=== PATIENT | male | born 1945 | race Caucasian/White ===

== ENCOUNTER 2017-08-26 09:44 | Emergency (ER) | payer MEDICARE ==
[~2017-08-26] VITALS: Ht 170.2 cm; Wt 90.7 kg
[~2017-08-26 09:44] MED LIST: ACETAMINOPHEN650 M5 PO; AMBIEN 10 MG TA10 MG PO; AMBIEN 5 MG TABL5 M1 PO; ASA81BEC PO; ASPIR 8181 MG PO; B12INJ IM; B12INJ SUBQ; BISACODYL SUPP10 MG RECTAL; CALCIUM 600 +1 EAC1 PO; CALCIUM 600 WI1 EAC5 PO; CALTRATE-600 W1 EACH PO; CARDIZEM CD120 MG PO; CARDIZEM CD240 MG PO; CELEXA 20 MG TA20 MG PO; CELEXA20 MG PO; CELEXA40 MG PO; CITRACAL + D M1 EACH PO; CITRACAL SOFT1 EACH PO; CLONAZEPAM 1 MG1 M1 PO; COLACE 100 MG100 MG PO; CORDARONE200 MG PO; COUMADIN 4 MG TA4 M1 PO; CYANOCOBAL1000 MCG/1 IM; CYMBALTA30 MG PO; CYMBALTA60 MG PO; DOCUSATE SODIU100 MG; DURAGESIC1 EAC2 TOP; EFFEXOR XR75 MG PO; ENDOCET 5-3251 EACH PO; ENOXAPARIN40 MG/0.1 SUBQ; FISH OIL 1,0001 EAC8 PO; FISH OIL 1,001000 M1 PO; FLAGYL500 MG OR; FLEET ENEMA118 ML RC; FLEXERIL PO; FLINTSTONES +1 EACH PO; FLINTSTONES T100 MCG PO; FLOMAX OR; FLOMAX0.4 MG PO; FLONASE 0.05%50 MCG NASAL; GABAPENTIN 100100 MG PO; GLUCOSE4 GM PO; HYDROCODON-ACE1 EAC1 PO; HYDROCODONE-ACE15 ML PO; HYDROCODONE-APA15 ML PO; IRON18 M1 PO; IRON325 PO; K-DUR 20 MEQ T20 MEQ PO; LEVOTHYROXIN0.075 MG PO; LIDODERM 5%1 PATC1 TRANSDERM; LOPERAMIDE 2 MG2 M1 PO; MECLIZINE 25 MG25 M1 OR; MEDROLDOSEPACK PO; METAMUCIL PAC1 UDPK1 GT; MILK OF MA2400 MG/10 PO; MUCINEX TA600 MG/TA2 PO; NAPROSYN500 MG PO; NEURONTIN 300300 M1 PO; NORCO 5-325 TA1 EACH PO; OMEGA-31000 MG PO; OXYCODONE HCL 55 MG PO; OXYIR 5 MG CAPSU5 M1; PACERONE 200 M200 M1 NG; PACERONE 200 M200 M1 PO; PERCOCET 10-321 EACH PO; PERCOCET 5-3251 EACH; PERCOCET 5-3251 EACH PO; PERCOCET 7.5-31 EACH PO; PERCOCET PO; PLAVIX 75 MG TA75 MG OR; POTASSIUM20 PO; PRADAXA150 MG PO; PRADAXA75 MG PO; PREDNISONE 20 M20 MG PO; PROPAFENONE 22225 M1 PO; RAPAFLO8 MG; RAPAFLO8 MG PO; ROXICODONE5 MG PO; SENOKOT-S1 TA1 PO; SEROQUEL 50 MG50 MG; SEROQUEL 50 MG50 MG PO; TAMSULOSIN HCL0.4 M1 PO; TAMSULOSIN HCL0.4 MG PO; TRAMADOL 50 MG50 MG PO; VICODIN 5-5001 EACH OR; VIIBRYD10 MG PO; VIIBRYD40 MG PO; [UNRECOGNIZED DRUG - OTHER] PO
[2017-08-26 10:11] LABS: ABSOLUTE BASOPHILS 0.1 thou/uL (0.0-0.2); ABSOLUTE EOSINOPHILS 0.2 thou/uL (0.0-0.7); ABSOLUTE MONOCYTES 0.3 thou/uL (0.0-1.2); ABSOLUTE NEUTROPHILS 5.8 thou/uL (1.6-8.1); EOSINOPHILS 2.1 %; HEMATOCRIT 43.7 % (42.0-52.0); HEMOGLOBIN 14.2 gm/dL (14.0-18.0); LYMPHOCYTES 13.4 %; MCH 30.7 pg (26.0-34.0); MCHC 32.5 g/dL (28.0-37.0); MCV 94.3 fL (80.0-100.0); MONOCYTES 4.3 %; MPV 8.1 fl. (7.2-11.1); NUCLEATED RBCS 0 /100WBC; PLATELET COUNT* 174 thou/uL (150-400); POLYS 79.2 %; RBC 4.63 mil/uL (4.50-6.00); WBC 7.3 thou/uL (4.0-11.0)
[2017-08-26 10:16] LABS: CALCIUM 8.4 mg/dL (8.5-10.1); CREATININE 0.8 mg/dL (0.6-1.3); POTASSIUM 4.6 mmol/L (3.5-5.1)
[2017-08-26 10:20] LABS: ALBUMIN 3.2 g/dL (3.4-5.0); TOTAL BILIRUBIN 0.8 mg/dL (<0.1-1.0); TOTAL PROTEIN 6.3 g/dL (6.4-8.2)
[2017-08-26 11:12] LABS: URINE BILIRUBIN NEGATIVE (Negative); URINE BLOOD NEGATIVE (Negative); URINE CLARITY CLEAR; URINE COLOR YELLOW; URINE GLUCOSE-RANDOM NEGATIVE (Negative); URINE KETONES NEGATIVE (Negative); URINE LEUKOCYTES-REFLEX NEGATIVE (Negative); URINE NITRITE-REFLEX NEGATIVE (Negative); URINE PROTEIN NEGATIVE (Negative)
[2017-08-26 11:33] VITALS: BP 138/72
--- NOTE | 2017-08-26 15:51 | EKG ---
[place] [address] ELECTROCARDIOGRAM REPORT Name: REESE SCHULTE Room: [facility] ([place], [place])Kris#: [id number] Admission: 08/26/17 Attend Phys: Discharge: 08/26/17 Date of : 43 Report #: [id number] THIS REPORT FOR: //name// [facility] ED Test Date: 2017-08-26 Test Time: 09:52:04 Pat Name: REESE ERIS Department: Room: Gender: M Change Management Coordinator: : 1945 Requested By: Fabian Lowry Order Number: [id number] Jarvis MD: Hugh Rodriguez Measurements Intervals [place] Rate: 61 P: 42 LA: 176 QRS: 70 QRSD: 144 T: 49 QT: 500 QTc: 504 Interpretive Statements Sinus rhythm Right bundle branch block Baseline wander in lead(s) I,III,aVR,aVL,aVF Compared to ECG 03/31/2017 03:46:08 No significant changes Electronically Signed On 08-26-2017 15:51:10 BUSINESS PERFORMANCE ADVISOR by Hugh Rodriguez [email or web address] <ELECTRONICALLY SIGNED> By: Hugh Rodriguez MD, [facility] 08/26/17 1551 0952 0952 Hugh Rodriguez MD, FAC /EPI
== END 2017-08-26 11:34 | disposition home or self-care (01) ==
LOC: M.ERS 09:44
PROVIDERS: Emergency Medicine
DX: S01.01XA Laceration without foreign body of scalp, initial encounter (principal); S70.02XA Contusion of left hip, initial encounter; I10 Essential (primary) hypertension; E03.9 Hypothyroidism, unspecified; I48.91 Unspecified atrial fibrillation; Z98.890 Other specified postprocedural states; Z90.49 Acquired absence of other specified parts of digestive tract; Z96.653 Presence of artificial knee joint, bilateral; W18.39XA Other fall on same level, initial encounter; Y93.89 Activity, other specified; Y92.89 Other specified places as the place of occurrence of the external cause; Y99.8 Other external cause status

== ENCOUNTER → 2018-12-21 | Outpatient (CLI) | payer MEDICARE ==
--- NOTE | 2018-12-21 16:59 | CARDNUC ---
[place] [address] CARDIAC NUCLEAR IMAGING REPORT Name: REESE SCHULTE SR Room: [facility]#: [id number] Admission: 12/21/18 Attend Phys: Bruce Rodriguez, Discharge: Date of : 43 Date of Service: 12/21/18 1659 Report #: [id number] THIS REPORT FOR: //name// APPROVED REPORT Imaging Protocol: Rest Tc-99m/Stress Tc-99m 1 day Study performed: 12/21/2018 09:00:00 Indication: Chest pain Patient Location: Out-Patient Stress Tech: Sheri Canas Stress Nurse: Griselda Bustamante RN NM Tech:VINICIUS Whipple Ht: 5 ft 6 in Wt: 187 lbs BSA: 1.94 m2 BMI: 30.17 Medical History Medical History: Angina, Atrial Fibrillation, Fatigue, HTN, Obesity , Weakness, Weight loss surgery, Confusion, Forgetfulness. Medications: ASA 81 mg, metoprolol, NTG, rythmol Allergies: No known drug allergies Cardiac Risk Factors: Age, FHX of CAD, HTN, AFib. Previous Cardiac Procedures: None Pretest Chest Pain Characteristics: Typical angina Exercise History: Sedentary Physical Disabilities: Legs, Knees, HX Afib. Meds Held (24 hrs): Metoprolol, NTG Resting Data Rest SPECT myocardial perfusion imaging was performed in supine position 30 minutes following the intravenous injection of 12.0 mCi of Tc-99m Sestamibi. Time of rest injection: 914 Date: 12/21/2018 The images were gated to evaluate regional wall motion and calculate left ventricular ejection fraction. Administration Route: IV Administration Site: Right Hand Pharmacologic Stress Pharmacologic stress test was performed by injecting Regadenoson 0.4 mg IV push over 10-15 seconds immediately followed by the intravenous injection of 33.4 mCi of Tc-99m Sestamibi. Time of stress injection: 1050 Date: 12/21/2018 Administration Route: [place] [address] CARDIAC NUCLEAR IMAGING REPORT Name: REESE SCHULTE Room: [facility]#: [id number] Admission: 12/21/18 Attend Phys: Bruce Rodriguez, Discharge: Date of : 43 Date of Service: 12/21/18 1659 Report #: [id number] Administration Site: Right Hand Gated Stress SPECT was performed 40 minutes after stress injection. The images were gated to evaluate regional wall motion and calculate left ventricular ejection fraction. Stress only was performed in the Supine position. Stress Test Details Stress Test: Pharmacologic stress testing performed using 0.4 mg of regadenoson per 5 mL given IV over 10 seconds. Reason for pharmacologic stress test: physical limitation, 2x assist in transfer, weak/unsteady, HX Afib.. HR Max Heart Rate (APMHR): 146 bpm Resting HR: 72 bpm Target HR (85% APMHR): 124 bpm Max HR Achieved: 85 bpm % of APMHR: 58 Recovery HR: 75 bpm BP Resting BP: 138/92 mmHg Max BP: 147/96 mmHg Recovery BP: 125/94 mmHg ECG Resting ECG: Sinus Rhythm, RBBB Stress ECG: Sinus Rhythm, RBBB ST Change: None Arrhythmia: None Recovery ECG: Sinus Rhythm, RBBB Recovery ST Change: None Recovery Arrhythmia: None Clinical Reason for Termination: Completed protocol Stress Symptoms: Chest pain, Dizziness, Fatigue, Headache, Lightheaded, Weakness Exercise duration: 0 min 0 sec Exercise capacity: 1.00 METs The patient tolerated Lexiscan infusion without significant symptoms. Nurse Comments 73 year old male presented in wheelchair with exhibiting confusion, forgetfullness and reporting CP. Patient tolerated sitting Lexiscan. Recovery unremarkable with PO caffeine. Patient escorted via wheelchair by staff with at side [place] [address] CARDIAC NUCLEAR IMAGING REPORT Name: REESE SCHULTE SR Room: [facility] Lon#: [id number] Admission: 12/21/18 Attend Phys: Bruce Rodriguez, Discharge: Date of : 43 Date of Service: 12/21/18 1659 Report #: [id number] images. Patient stable with no complaints at that time. Stress ECG Conclusion The baseline 12-lead EKG show sinus rhythm with right bundle-branch block. There were no significant ST or T wave abnormalities noted. EKGs obtained during and post Lexiscan infusion show sinus rhythm with no significant ST or T wave changes when compared to baseline. There were no stress-induced arrhythmias. Study Quality Study: Good Artifact: No artifact Study Data At rest, the left ventricular ejection fraction was 80%.. Post stress, the left ventricular ejection was 78%.. TID = 1.00. Perfusion Normal left ventricular perfusion. Wall Motion Normal left ventricular wall motion. Nuclear Conclusion ECG Findings: negative for ischemia Clinical Findings: negative for ischemia Nuclear Findings: negative for ischemia Exercise Capacity: not assessed Left Ventricular Function: normal Risk Study: low Myocardial perfusion images show no defect to suggest infarct or ischemia. Left ventricular systolic function appears normal on gated studies. This is a low risk study. <Conclusion> The baseline 12-lead EKG show sinus rhythm with right bundle-branch block. There were no significant ST or T wave abnormalities noted. EKGs obtained during and post Lexiscan infusion show sinus rhythm with no significant ST or T wave changes when compared to baseline. There were no stress-induced arrhythmias. <ELECTRONICALLY SIGNED> By: Norbert Sy MD, FACC 12/21/181658 58 58 Norbert Sy MD, FACC /INF
== END ==
LOC: M.NUC 12-20 13:00 → M.CRD 12-20 14:00 → M.NUC 12-20 15:00
DX: I20.8 Other forms of angina pectoris (principal); I48.91 Unspecified atrial fibrillation; I10 Essential (primary) hypertension; E66.9 Obesity, unspecified; Z68.30 Body mass index [BMI] 30.0-30.9, adult; Z82.49 Family history of ischemic heart disease and other diseases of the circulatory system; Z79.899 Other long term (current) drug therapy

== ENCOUNTER 2019-01-03 10:55 | Emergency (ER) | payer MEDICARE ==
[~2019-01-03] VITALS: Ht 170.2 cm; Wt 76.7 kg
[2019-01-03 11:16] LABS: ABSOLUTE BASOPHILS 0.1 thou/uL (0.0-0.2); ABSOLUTE EOSINOPHILS 0.1 thou/uL (0.0-0.7); ABSOLUTE LYMPHOCYTES 1.6 thou/uL (0.8-5.3); ABSOLUTE MONOCYTES 0.4 thou/uL (0.0-1.2); ABSOLUTE NEUTROPHILS 3.2 thou/uL (1.6-8.1); BASOPHILS 1.5 %; HEMATOCRIT 45.7 % (42.0-52.0); HEMOGLOBIN 15.6 gm/dL (14.0-18.0); LYMPHOCYTES 29.3 %; MCH 31.3 pg (26.0-34.0); MCHC 34.1 g/dL (28.0-37.0); MCV 91.8 fL (80.0-100.0); MONOCYTES 8.1 %; MPV 7.9 fl. (7.2-11.1); NUCLEATED RBCS 0 /100WBC; PLATELET COUNT* 228 thou/uL (150-400); POLYS 60.1 %; RBC 4.98 mil/uL (4.50-6.00); RDW-CV 14.3 % (10.5-14.5); WBC 5.3 thou/uL (4.0-11.0)
[2019-01-03 11:26] LABS: ANION GAP 10 mmol/L (7-16); BUN 3 mg/dL (7-18); CALCIUM 8.1 mg/dL (8.5-10.1); CHLORIDE 101 mmol/L (98-107); CO2 32 mmol/L (21-32); CREATININE 0.7 mg/dL (0.6-1.3); GLUCOSE 105 mg/dL (70-99); SODIUM 143 mmol/L (136-145)
[2019-01-03 11:28] LABS: APTT 29.5 Seconds (25.0-31.3); INR 1.1
[2019-01-03 11:32] LABS: POTASSIUM 2.4 mmol/L (3.5-5.1)
[2019-01-03 11:39] LABS: ALBUMIN 3.2 g/dL (3.4-5.0); ALKALINE PHOSPHATASE 123 U/L (46-116); CK-MB MASS 1.8 ng/mL (<0.5-3.6); LIPASE 33 U/L (73-393); MAGNESIUM 1.7 mg/dL (1.8-2.4); NT-PRO BRAIN NAT PEPTIDE 605 pg/mL (<300); SGOT 22 U/L (15-37); SGPT 18 U/L (30-65); TOTAL BILIRUBIN 1.4 mg/dL (<0.1-1.0); TOTAL PROTEIN 6.4 g/dL (6.4-8.2); TROPONIN-I LEVEL <0.06 ng/mL (<0.06)
[2019-01-03] MEDS ORDERED: POTASSIUM20 PO (14:21)
[2019-01-03] MEDS ORDERED: PERCOCET 5-3251 EACH PO (14:21)
[2019-01-03 15:08] VITALS: BP 110/79
--- NOTE | 2019-01-04 11:17 | EKG ---
[place] [address] ELECTROCARDIOGRAM REPORT Name: REESE SCHULTE [id number] Admission: 01/03/19 Attend Phys: Discharge: 01/03/19 Date of : 43 Report #: [id number] THIS REPORT FOR: //name// [facility] ED Test Date: 2019-01-03 Test Time: 11:00:03 Pat Name: REESE SCHULTE Department: Room: Gender: M Safety Fire Boss: Jackie LANDEROS : 1945 Requested By: Jesus Malik Order Number: [id number] MD: Leonardo Mayer Measurements Intervals [place] Rate: 73 P: 47 HI: 176 QRS: 63 QRSD: 148 T: 28 QT: 573 QTc: 632 Interpretive Statements Sinus rhythm Right bundle branch block Baseline wander in lead(s) V1 Compared to ECG 08/26/2017 09:52:04 No significant changes Electronically Signed On 01-04-2019 11:17:22 CDT by Leonardo Mayer [email or web address] <ELECTRONICALLY SIGNED> By: Leonardo Mayer MD, [facility] 01/04/19 1117 1100 1100 Leonardo Mayer MD, FAC /EPI
== END 2019-01-03 15:11 | disposition home or self-care (01) ==
LOC: M.ERS 10:55
PROVIDERS: Family Medicine
DX: R07.89 Other chest pain (principal); E87.6 Hypokalemia; I10 Essential (primary) hypertension; E03.9 Hypothyroidism, unspecified; I48.91 Unspecified atrial fibrillation; Z96.653 Presence of artificial knee joint, bilateral; Z90.49 Acquired absence of other specified parts of digestive tract

== ENCOUNTER 2019-04-25 13:15 | Inpatient (IN) | payer MEDICARE ==
[~2019-04-25] VITALS: Ht 172.7 cm; Wt 81.7 kg
[2019-04-25 13:16] VITALS: BP 125/74
[2019-04-25 13:42] LABS: BE 4.7 mmol/L (-2 to +3); PCO2 42.5 mmHg (35.0-45.0); pH 7.454 (7.340-7.450)
[2019-04-25 13:44] LABS: PO2 40.4 mmHg (75.0-100.0)
[2019-04-25 13:53] LABS: ABSOLUTE LYMPHOCYTES 0.9 thou/uL (0.8-5.3); ABSOLUTE MONOCYTES 0.6 thou/uL (0.0-1.2); ABSOLUTE NEUTROPHILS 6.2 thou/uL (1.6-8.1); BASOPHILS 0.5 %; EOSINOPHILS 0.6 %; HEMATOCRIT 36.9 % (42.0-52.0); HEMOGLOBIN 12.7 gm/dL (14.0-18.0); LYMPHOCYTES 11.1 %; MCH 32.8 pg (26.0-34.0); MCHC 34.5 g/dL (28.0-37.0); MCV 95.2 fL (80.0-100.0); MONOCYTES 8.3 %; MPV 8.4 fl. (7.2-11.1); NUCLEATED RBCS 0 /100WBC; PLATELET COUNT* 164 thou/uL (150-400); POLYS 79.5 %; RBC 3.88 mil/uL (4.50-6.00); RDW-CV 14.6 % (10.5-14.5); WBC 7.8 thou/uL (4.0-11.0)
[2019-04-25 14:03] LABS: INR 1.1; PROTIME 11.4 Seconds (9.20-11.50)
[2019-04-25 14:05] LABS: ANION GAP 6 mmol/L (7-16); BUN 8 mg/dL (7-18); CALCIUM 7.3 mg/dL (8.5-10.1); CHLORIDE 101 mmol/L (98-107); CO2 32 mmol/L (21-32); CREATININE 0.8 mg/dL (0.6-1.3); GLUCOSE 87 mg/dL (70-99); SODIUM 139 mmol/L (136-145)
[2019-04-25 14:06] LABS: POTASSIUM 2.7 mmol/L (3.5-5.1)
[2019-04-25 14:13] LABS: ALBUMIN 2.3 g/dL (3.4-5.0); ALKALINE PHOSPHATASE 137 U/L (46-116); NT-PRO BRAIN NAT PEPTIDE 4450 pg/mL (<300); SGOT 24 U/L (15-37); SGPT 16 U/L (30-65); TOTAL BILIRUBIN 1.3 mg/dL (<0.1-1.0); TOTAL PROTEIN 5.2 g/dL (6.4-8.2); TROPONIN-I LEVEL <0.06 ng/mL (<0.06)
[2019-04-25 14:36] LABS: URINE BILIRUBIN NEGATIVE (Negative); URINE BLOOD NEGATIVE (Negative); URINE CLARITY CLEAR; URINE COLOR YELLOW; URINE GLUCOSE-RANDOM NEGATIVE (Negative); URINE KETONES NEGATIVE (Negative); URINE LEUKOCYTES-REFLEX NEGATIVE (Negative); URINE NITRITE-REFLEX NEGATIVE (Negative); URINE PROTEIN NEGATIVE (Negative); URINE SPECIFIC GRAVITY <= 1.005 (1.005-1.030)
[2019-04-25 16:00] VITALS: BP 133/90
[2019-04-25 16:15] VITALS: BP 128/82
[2019-04-25 16:57] LABS: BE 7.3 mmol/L (-2 to +3); PO2 63.1 mmHg (75.0-100.0); pH 7.432 (7.340-7.450)
[2019-04-25 17:00] LABS: PCO2 50.6 mmHg (35.0-45.0)
--- NOTE | 2019-04-25 17:26 | EKG ---
[place] [address] ELECTROCARDIOGRAM REPORT Name: REESE SCHULTE Room: [address] ADM IN M.R.#: [id number] Admission: 04/25/19 Attend Phys: Wood Vinson, Discharge: Date of : 43 Report #: [id number] THIS REPORT FOR: //name// [facility] ED Test Date: 2019-04-25 Test Time: 13:27:52 Pat Name: REESE ERIS Department: Room: [facility] Gender: M It Service Continuity Supervisor: [place] : 1945 Requested By: Jesus Malik Order Number: [id number] MD: Norbert Sy Measurements Intervals [place] Rate: 75 P: 36 CA: 201 QRS: 76 QRSD: 161 T: -1 QT: 464 QTc: 519 Interpretive Statements Sinus rhythm Right bundle branch block Compared to ECG 01/03/2019 11:00:03 No significant changes Electronically Signed On 04-25-2019 17:26:13 CDT by Norbert Sy [email or web address] <ELECTRONICALLY SIGNED> By: Norbert Sy MD, [facility] 04/25/19 1726 1327 132 Norbert Sy MD, [facility] /EPI
[2019-04-26] VITALS: BP 116/81
[2019-04-26 04:00] VITALS: BP 121/78
[2019-04-26 05:25] LABS: HEMATOCRIT 40.5 % (42.0-52.0); HEMOGLOBIN 13.7 gm/dL (14.0-18.0); MCH 32.4 pg (26.0-34.0); MCHC 33.7 g/dL (28.0-37.0); MCV 96.2 fL (80.0-100.0); MPV 8.4 fl. (7.2-11.1); RBC 4.22 mil/uL (4.50-6.00); RDW-CV 15.3 % (10.5-14.5); WBC 5.9 thou/uL (4.0-11.0)
[2019-04-26 05:58] LABS: ANION GAP 7 mmol/L (7-16); BUN 9 mg/dL (7-18); CALCIUM 7.6 mg/dL (8.5-10.1); CHLORIDE 105 mmol/L (98-107); CO2 30 mmol/L (21-32); CREATININE 0.9 mg/dL (0.6-1.3); GLUCOSE 102 mg/dL (70-99); MAGNESIUM 1.9 mg/dL (1.8-2.4); SODIUM 142 mmol/L (136-145); TROPONIN-I LEVEL <0.06 ng/mL (<0.06)
[2019-04-26 06:05] LABS: POTASSIUM 3.9 mmol/L (3.5-5.1)
[2019-04-26 08:00] VITALS: BP 129/72
[2019-04-26 11:00] VITALS: BP 106/61
--- NOTE | 2019-04-26 11:38 | 2DMMODE ---
[place] [address] 2 D/M-MODE ECHOCARDIOGRAM Name: REESE SCHULTE Room: [address] IN [facility]#: [id number] Admission: 04/25/19 Attend Phys: Wood Aguayo Discharge: Date of : 43 Date of Service: 04/26/19 1138 Report #: [id number] THIS REPORT FOR: //name// APPROVED REPORT Study performed: 04/26/2019 10:15:47 EXAM: Comprehensive 2D, Doppler, and color-flow Echocardiogram Patient Location: In-Patient Room #: [facility] Status: routine BSA: 1.95 HR: 75 bpm BP: 129/72 mmHg Rhythm: NSR Other Information Study Quality: Fair Indications Abnormal ECG Dyspnea 2D Dimensions IVSd: 11.53 (7-11mm) LVOT Diam: 21.68 (18-24mm) LVDd: 41.60 mm PWd: 9.90 (7-11mm) Ascending Ao: 37.16 (22-36mm) LVDs: 26.24 (25-40mm) Aortic Root: 34.27 mm Volumes Left Atrial Volume (Systole) LA ESV Index: 24.30 mL/m2 Aortic Valve AoV Peak Fernando.: 1.65 m/s AO Peak Gr.: 10.89 mmHg LVOT Max P.36 mmHg AO Mean Gr.: 5.71 mmHg LVOT Mean P.31 mmHg LVOT Max V: 1.16 m/s AO V2 VTI: 30.16 cm LVOT Mean V: 0.68 m/s SANYA (VTI): 2.77 cm2 LVOT V1 VTI: 22.61 cm Mitral Valve E/A Ratio: 0.80 MV Decel. Time: 275.85 [place] [address] 2 D/M-MODE ECHOCARDIOGRAM Name: REESE SCHULTE Room: [address] IN .#: [id number] Admission: 04/25/19 Attend Phys: Wood Aguayo Discharge: Date of : 43 Date of Service: 04/26/19 1138 Report #: [id number] MV E Max Fernando.: 0.62 m/s MV PHT: 80.00 ms MVA (PHT): 2.75 cm2 TDI E/Lateral E': 3.88 E/Medial E': 6.20 Medial E' Fernando.: 0.10 m/s Lateral E' Fernando.: 0.16 m/s Pulmonary Valve PV Peak Fernando.: 0.94 m/s PV Peak Gr.: 3.57 mmHg Tricuspid Valve RAP Estimate: 5.00 mmHg TR Peak Gr.: 32.25 mmHg RVSP: 37.00 mmHg PA Pressure: 37.00 mmHg Left Ventricle The left ventricle is normal size. There is normal LV segmental wall motion. There is normal left ventricular wall thickness. Left ventricular systolic function is normal. The left ventricular ejection fraction is within the normal range. LVEF is 60-65%. Grade I - abnormal relaxation pattern. Right Ventricle The right ventricle is normal size. The right ventricular systolic function is normal. Atria The left atrium size is normal. Right atrium is dilated. Aortic Valve Mild aortic valve sclerosis. Mild aortic regurgitation. There is no aortic valvular stenosis. Mitral Valve The mitral valve is normal in structure. There is no mitral valve regurgitation noted. No evidence of mitral valve stenosis. Tricuspid Valve The tricuspid valve is normal in structure. Mild tricuspid regurgitation. estimated pa pressure 45 mm Hg Pulmonic Valve Pulmonic valve is not well visualized. There is no pulmonic [place] [address] 2 D/M-MODE ECHOCARDIOGRAM Name: REESE SCHULTE SR Room: [address]#: [id number] Admission: 04/25/19 Attend Phys: Wood Aguayo Discharge: Date of : 43 Date of Service: 04/26/19 1138 Report #: [id number] Great Vessels The aortic root is normal in size. IVC is normal in size and collapses >50% with inspiration. Pericardium There is no pericardial effusion. <Conclusion> LVEF is 60-65%. Mild aortic regurgitation. Mild tricuspid regurgitation. estimated pa pressure 45 mm Hg <ELECTRONICALLY SIGNED> By: Leonardo Mayer MD, FACC 04/26/19 1138 1138 1138 Leonardo Mayer MD, FACC /INF
--- NOTE | 2019-04-26 14:00 | CON ---
[address] [address] CONSULTATION Name: REESE SCHULTE SR Room: [address] IN .R.#: [id number] Admission: 04/25/19 Attend Phys: Wood Vinson, Discharge: Date of : 43 Report #: [id number] THIS REPORT FOR: //name// CC: Areli Younger DATE OF SERVICE: 04/26/2019 CARDIOLOGY CONSULTATION HISTORY OF PRESENT ILLNESS: The patient is a 74-year-old white male who I was asked to see in the hospital today after he complained of feeling weak. The patient has a history of developing atrial fibrillation after surgery in the past. He has been followed by my partner, Dr. Rodriguez. He chronically has been on Rythmol and metoprolol. He denies any recent palpitations. He has no history of coronary artery disease. He is not very active at this time, but denies any significant chest pain or shortness of breath. Apparently, the patient was doing well until yesterday. He felt weak and felt trembly. He was sitting in the side of bed and fell over. Paramedics were called. He was noted to be hypoxic. He was brought to the hospital for further evaluation and treatment. PAST MEDICAL HISTORY: Otherwise significant for carpal tunnel surgery, cataract extraction, cholecystectomy, history of obesity, previously weighed over 300 pounds. He had gastric bypass. He now weighs 187 pounds. He has had both knees replaced. He has had shoulder surgery. There is no history of diabetes, has hypertension, hyperlipidemia. MEDICATIONS: Consists of aspirin, Klonopin, Lexapro, Neurontin, Synthroid, meclizine, metoprolol, Rythmol, Seroquel, Rapaflo. He has sleep apnea. ALLERGIES: He has no known drug allergies. FAMILY HISTORY: His father had heart disease. SOCIAL HISTORY: He is . He and his live in [place], [place]. 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 No smoking. No alcohol abuse. REVIEW OF SYSTEMS: He has had no history of stroke, asthma, peptic ulcer disease, liver disease, kidney disease, cancer, psychiatric illness, chronic skin condition. PHYSICAL EXAMINATION: GENERAL: Revealed an elderly male, lying in bed, appeared in no acute distress. VITAL SIGNS: He had a blood pressure of 120/80, pulse 60[place] [address] CONSULTATION Name: ERISREESE MADELIN MALDONADO Room: [address]#: [id number] Admission: 04/25/19 Attend Phys: Wood Vinson, Discharge: Date of : 43 Report #: [id number] HEENT: He was anicteric. Conjunctivae pink. Mucous membranes moist. NECK: Veins do not appear distended. No carotid bruits. Neck supple. CHEST: Revealed decreased breath sounds at bases. CARDIOVASCULAR: Regular rate and rhythm. No significant murmur. ABDOMEN: Soft. EXTREMITIES: Had no edema. Dorsalis pedis pulse 3+ in the right, left is only 1+. SKIN: Cool and dry. NEUROLOGIC: Nonfocal. LYMPH: No adenopathy. MUSCULOSKELETAL: No joint effusion. RADIOLOGICAL DATA: His ECG on admission showed a sinus rhythm with a right bundle-branch block. His workup, he had a nuclear stress test in December of this year here at [facility] that showed ejection fraction 78%. No evidence of ischemia. He had an echocardiogram in 2015 that showed an ejection fraction of 60%. He had a portable chest x-ray in the Emergency Room last night. He is showing an infiltrate, tortuous aorta. He had CT scan of the chest using a PE protocol that showed no pulmonary embolus, diffuse infiltrates. CT scan of the head was performed without contrast that showed only chronic changes, no acute abnormalities. LABORATORY WORK: Sodium 142, creatinine 0.9. Liver function studies were normal. Albumin is only 2.3. Troponin 0.06. BNP 4450. His white blood cell count 5.9, hemoglobin 13.7. IMPRESSION AND RECOMMENDATIONS: 1. Pulmonary edema. Recommend echocardiogram. I would give Lasix. 2. Tremor. 3. History of atrial fibrillation. No clinical recurrences on propranolol and metoprolol. 4. History of obesity with previous gastric bypass. 5. History of hypertension. The patient is on a beta marco. 6. Sleep apnea. The patient uses CPAP. <ELECTRONICALLY SIGNED> By: Leonardo Mayer MD, [facility] 04/26/19 1400 0816 [id number] Mayer MD, FAC /nt
[2019-04-26 15:00] VITALS: BP 115/72
[2019-04-27] VITALS: BP 126/76
[2019-04-27 04:00] VITALS: BP 124/71
[2019-04-27 04:53] LABS: CALCIUM 7.5 mg/dL (8.5-10.1); CREATININE 0.6 mg/dL (0.6-1.3); POTASSIUM 3.1 mmol/L (3.5-5.1)
[2019-04-27 09:00] VITALS: BP 111/59
[2019-04-27 12:26] VITALS: BP 97/62
[2019-04-27 17:18] VITALS: BP 124/64
[2019-04-27 20:00] VITALS: BP 113/72
[2019-04-28 00:18] VITALS: BP 101/65
[2019-04-28 04:52] VITALS: BP 122/76
[2019-04-28 07:30] VITALS: BP 152/95
[2019-04-28 12:09] VITALS: BP 95/58
[2019-04-28 15:47] LABS: ABSOLUTE LYMPHOCYTES 0.9 thou/uL (0.8-5.3); ABSOLUTE MONOCYTES 0.3 thou/uL (0.0-1.2); ABSOLUTE NEUTROPHILS 3.8 thou/uL (1.6-8.1); BASOPHILS 0.5 %; HEMATOCRIT 42.6 % (42.0-52.0); HEMOGLOBIN 14.2 gm/dL (14.0-18.0); LYMPHOCYTES 18.2 %; MCH 32.3 pg (26.0-34.0); MCHC 33.4 g/dL (28.0-37.0); MCV 96.8 fL (80.0-100.0); MONOCYTES 5.1 %; MPV 8.8 fl. (7.2-11.1); NUCLEATED RBCS 0 /100WBC; PLATELET COUNT* 218 thou/uL (150-400); POLYS 75.2 %; RDW-CV 14.9 % (10.5-14.5); WBC 5.1 thou/uL (4.0-11.0)
[2019-04-28 15:55] LABS: ALBUMIN 2.1 g/dL (3.4-5.0); CALCIUM 7.8 mg/dL (8.5-10.1); CREATININE 0.7 mg/dL (0.6-1.3); POTASSIUM 4.1 mmol/L (3.5-5.1); TOTAL BILIRUBIN 0.8 mg/dL (<0.1-1.0); TOTAL PROTEIN 5.6 g/dL (6.4-8.2)
[2019-04-28 16:00] VITALS: BP 95/60
[2019-04-28 20:00] VITALS: BP 101/64
[2019-04-29] VITALS (7 sets, daily range): BP systolic 90–110; BP diastolic 50–74
[2019-04-29 05:28] LABS: CALCIUM 7.8 mg/dL (8.5-10.1); CREATININE 0.6 mg/dL (0.6-1.3)
--- NOTE | 2019-04-29 07:40 | CON ---
[address] [address] CONSULTATION Name: REESE SCHULTE SR Room: [address] IN M.R.#: [id number] Admission: 04/25/19 Attend Phys: Wood Vinson, Discharge: Date of : 43 Report #: [id number] THIS REPORT FOR: //name// CC: Leonardo Mayer MD [facility] Areli Vincent MD DATE OF SERVICE: 04/26/2019 LOCATION: Room [facility] [address] ATTENDING PHYSICIAN: Wood Vinson MD PRIMARY CARE PHYSICIAN: Areli Hernandez MD INDICATION FOR CONSULTATION: CHF, hypoxemia, sleep apnea, mild pulmonary hypertension. HISTORY OF PRESENT ILLNESS: The patient is a 74-year-old male who states he is a nonsmoker, who was feeling weak. He had cough, shortness of breath and flash pulmonary edema. He had been feeling weak for 3-4 days prior to admission and he had fallen a couple times at home. He had a dry cough. He denies any fever, chills, sweats. He denies any chest pain. He was supposed to be on CPAP at home. He was on oxygen now at 5 liters. He was on BiPAP at 40% or 50% overnight. Chest x-ray showed CHF. He was diuresed with Lasix b.i.d. He has had brisk urine output and feels better. He is down to 5 liters at this time and again, he denies any aspiration or esophageal reflux. No chest pain. He has had chronic peripheral edema. He has been weak and not able to ambulate, otherwise, he is on a bed alarm at this time. He does feel better today. His short term memory is not very good. His is at the bedside and helps out. PAST MEDICAL HISTORY: He has a history of atrial fibrillation, history of hypertension and also some diastolic congestive heart failure. Negative for diabetes or hyperlipidemia, positive for obstructive sleep apnea. PAST SURGICAL HISTORY: Includes carpal tunnel surgery, cataract surgery, cholecystectomy, history of obesity and he had a gastric bypass surgery about 10 years ago, he used to weigh over 300 pounds. He has had bilateral knee replacements in 2009 done 6 weeks apart at [facility] and had no problems with anesthetic or any problem after that. OUTPATIENT MEDICATIONS: Include aspirin 81 mg daily, Klonopin 0.5 mg at bedtime, Seroquel 50 mg at bedtime, Rythmol 225 mg t.i.d., metoprolol 25 mg b.i.d., Synthroid once daily, meclizine [place] [address] CONSULTATION Name: REESE SCHULTE SR Room: [address] IN ..#: [id number] Admission: 04/25/19 Attend Phys: Wood Vinson, Discharge: Date of : 43 Report #: [id number] ALLERGIES: He has no known medical allergies. FAMILY HISTORY: Father has a history of coronary artery disease. Negative for premature pulmonary disease. SOCIAL HISTORY: The patient is . He and his live in [place], [place], lifelong nonsmoker, nondrinker. 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 REVIEW OF SYSTEMS: Fourteen review of systems reviewed and negative except for pertinent positives noted in the HPI. PHYSICAL EXAMINATION: GENERAL: Elderly 74-year-old male on 4 liters, appears in minimal distress at this time. He can answer some questions. His answers most of them. VITAL SIGNS: Currently, his blood pressure is 106/62, heart rate 72, respirations were 18, temperature is 36.7 degrees, oxygen on 5 liters was 95%. He had previously been on BiPAP last night. He is 5 feet 10 inches tall, weight is 81 kilograms or 185 pounds, BMI is 27. HEENT: Nares are clear. Mucous membranes are moist. Pharynx is crowded with a Mallampati score of 4. NECK: Supple, without nodes. Mild increase in jugular venous pressure. No masses or adenopathy. CHEST: Shows bibasilar crackles, right greater than left, moderately prolonged expiratory phase. No wheeze noted. CARDIOVASCULAR: Shows irregular rate and rhythm with ventricular response in the 70s intermittent S1 is noted. ABDOMEN: Soft, no masses or megaly. EXTREMITIES: Show chronic venous stasis changes, especially on the left greater than right with 1+ edema there. He can move his arms and legs with a nonfocal neuro exam intact. SKIN: Shows venous stasis changes in left lower extremity, previous bilateral knee replacement surgery incisions. LABORATORY DATA: From 04/26/2019, hemoglobin is 13, white count is 5900, normal differential, platelets are 193,000. Sodium is 142, potassium is 3.9, bicarbonate is 30, BUN is 9 with a creatinine of 0.9 and a glucose of 102. ABGs on 04/25/2019 at 4:40 in the afternoon on 5 liters, pO2 was 63, pH 7.43, pCO2 was 50, bicarbonate was 33, sat was 89%. Surprisingly, carboxyhemoglobin mildly elevated at 1.7%. Coags within normal limits. Urine was unremarkable. Chest x-ray and CT of the chest again shows no pulmonary emboli and CHF with heart size upper limits of normal and he has had previous echocardiograms within the last couple of days showing ejection fraction of 60% and moderate pulmonary artery hypertension, PA systolic 45 with mild aortic sclerosis and diastolic dysfunction grade 2. Again, chest x-ray from 36 hours ago shows CHF with pulmonary edema, small bilateral pleural effusions [place] [address] CONSULTATION Name: REESE SCHULTE Room: [address] IN [facility]#: [id number] Admission: 04/25/19 Attend Phys: Wood Vinson, Discharge: Date of : 43 Report #: [id number] hypertension. No masses or tumors noted on CT scan. IMPRESSION: 1. Acute flash pulmonary edema. 2. Congestive heart failure, fluid overload, probably related to atrial fibrillation and hypertension. 3. Obstructive sleep apnea, under fair treatment at home with CPAP, in the hospital was on BiPAP. 4. Hypoxemia, multifactorial. 5. Hypertension. PLAN: BNP is elevated at 4450, normal BUN and creatinine. Will continue diuresis with Lasix. I think he will continue to diurese and improve. No need for PFTs at this time. He is on some breathing treatments. His workup was negative for pulmonary emboli. I do not think that is an issue and then he has mild hypercarbia and CO2 retention, may need to continue current BiPAP at night and then see if we can get CO2 levels down and then keep him on oxygen 3-5 liters during the day, probably check another blood gas on Wednesday and make sure that is stable and follow up on his hypercarbia. Make certain the patient does not smoke. May need full PFTs in the future if he has CO2 retention may also need a repeat sleep study. He was not sure when his last one was and so he may need to repeat sleep study at some point in time if he continues to have hypercarbia. Thanks again for allowing us to participate in this man's care. We will follow up along with you while he is in the hospital. <ELECTRONICALLY SIGNED> By: Ming Cunningham MD 04/29/19 0740 1829 0043Anthoronnell Cunningham MD /nt
[2019-04-30 04:00] VITALS: BP 98/57
[2019-04-30 05:15] LABS: HEMATOCRIT 37.2 % (42.0-52.0); HEMOGLOBIN 12.5 gm/dL (14.0-18.0); MCH 32.3 pg (26.0-34.0); MCHC 33.6 g/dL (28.0-37.0); MCV 96.4 fL (80.0-100.0); MPV 8.1 fl. (7.2-11.1); RBC 3.86 mil/uL (4.50-6.00); RDW-CV 14.3 % (10.5-14.5); WBC 4.1 thou/uL (4.0-11.0)
[2019-04-30 05:28] LABS: CALCIUM 7.5 mg/dL (8.5-10.1); CREATININE 0.7 mg/dL (0.6-1.3); POTASSIUM 3.5 mmol/L (3.5-5.1)
[2019-04-30 08:00] VITALS: BP 141/63
[2019-04-30 09:16] LABS: BE 4.8 mmol/L (-2 to +3); PCO2 40.8 mmHg (35.0-45.0); pH 7.468 (7.340-7.450)
[2019-04-30 14:46] VITALS: BP 114/48
[2019-04-30 16:00] VITALS: BP 98/59
[2019-04-30 20:26] VITALS: BP 100/68
[2019-05-01] VITALS: BP 92/60
[2019-05-01 04:00] VITALS: BP 169/88; BP 99/60
[2019-05-01 08:00] VITALS: BP 106/69
[2019-05-01 12:18] VITALS: BP 97/71
[2019-05-01 16:00] VITALS: BP 105/60
[2019-05-01 20:00] VITALS: BP 102/61
[2019-05-02 04:00] VITALS: BP 88/55
[2019-05-02 08:00] VITALS: BP 89/59
[2019-05-02 08:09] LABS: HEMATOCRIT 38.8 % (42.0-52.0); HEMOGLOBIN 13.3 gm/dL (14.0-18.0); MCH 32.6 pg (26.0-34.0); MCHC 34.1 g/dL (28.0-37.0); MCV 95.6 fL (80.0-100.0); MPV 7.7 fl. (7.2-11.1); RBC 4.06 mil/uL (4.50-6.00); RDW-CV 14.1 % (10.5-14.5); WBC 3.9 thou/uL (4.0-11.0)
[2019-05-02 08:27] LABS: ALBUMIN 2.4 g/dL (3.4-5.0); CREATININE 0.7 mg/dL (0.6-1.3); POTASSIUM 3.5 mmol/L (3.5-5.1); TOTAL BILIRUBIN 0.7 mg/dL (<0.1-1.0); TOTAL PROTEIN 5.8 g/dL (6.4-8.2)
[2019-05-02 17:07] VITALS: BP 91/55
[2019-05-02 20:00] VITALS: BP 107/77
[2019-05-03 04:00] VITALS: BP 106/59
[2019-05-03 08:00] VITALS: BP 125/90
[2019-05-03 12:00] VITALS: BP 117/63
[2019-05-03] MEDS ORDERED: FLORANEX TABLE1 EACH PO (15:04)
[2019-05-03] MEDS ORDERED: LASIX 40 MG TAB40 M2 PO (15:05)
[2019-05-03] MEDS ORDERED: LOPERAMIDE 2 MG2 M1 PO (15:06)
[2019-05-03] MEDS ORDERED: RYTHMOL SR225 MG PO (15:09)
[2019-05-03] MEDS ORDERED: TOPROL XL50 MG PO (15:09)
[2019-05-03] MEDS ORDERED: ACETAMINOPHEN325 M1 PO (15:10)
[2019-05-03 16:00] VITALS: BP 92/53
[2019-05-03 20:00] VITALS: BP 99/61
[2019-05-04 04:00] VITALS: BP 101/63
[2019-05-04 07:54] VITALS: BP 115/71
[2019-05-04 13:48] VITALS: BP 115/71
== END 2019-05-04 15:39 | DRG 291 ==
LOC: M.ERS 13:15 → M.TBA-ER 15:24 → M.2W 15:24
PROVIDERS: Family Medicine; Internal Medicine Cardiovascular Disease; Internal Medicine Pulmonary Disease; ADMIT Family Medicine
PROC: 5A09357 Assistance with Respiratory Ventilation, Less than 24 Consecutive Hours, Continuous Positive Airway Pressure (ICD-10-PCS; principal; 2019-04-25)
PROC: 5A09357 Assistance with Respiratory Ventilation, Less than 24 Consecutive Hours, Continuous Positive Airway Pressure (ICD-10-PCS; 2019-04-26)
PROC: 5A09357 Assistance with Respiratory Ventilation, Less than 24 Consecutive Hours, Continuous Positive Airway Pressure (ICD-10-PCS; 2019-04-27)
PROC: 5A09357 Assistance with Respiratory Ventilation, Less than 24 Consecutive Hours, Continuous Positive Airway Pressure (ICD-10-PCS; 2019-04-28)
PROC: 5A09357 Assistance with Respiratory Ventilation, Less than 24 Consecutive Hours, Continuous Positive Airway Pressure (ICD-10-PCS; 2019-04-29)
PROC: 5A09357 Assistance with Respiratory Ventilation, Less than 24 Consecutive Hours, Continuous Positive Airway Pressure (ICD-10-PCS; 2019-04-30)
PROC: 5A09357 Assistance with Respiratory Ventilation, Less than 24 Consecutive Hours, Continuous Positive Airway Pressure (ICD-10-PCS; 2019-05-01)
PROC: 5A09357 Assistance with Respiratory Ventilation, Less than 24 Consecutive Hours, Continuous Positive Airway Pressure (ICD-10-PCS; 2019-05-02)
PROC: 5A09357 Assistance with Respiratory Ventilation, Less than 24 Consecutive Hours, Continuous Positive Airway Pressure (ICD-10-PCS; 2019-05-03)
PROC: 5A09357 Assistance with Respiratory Ventilation, Less than 24 Consecutive Hours, Continuous Positive Airway Pressure (ICD-10-PCS; 2019-05-04)
DX: I11.0 Hypertensive heart disease with heart failure (principal); J96.01 Acute respiratory failure with hypoxia; E43 Unspecified severe protein-calorie malnutrition; J96.02 Acute respiratory failure with hypercapnia; I77.79 Dissection of other specified artery; J81.0 Acute pulmonary edema; I50.33 Acute on chronic diastolic (congestive) heart failure; E03.9 Hypothyroidism, unspecified; Z96.653 Presence of artificial knee joint, bilateral; E87.6 Hypokalemia; E78.5 Hyperlipidemia, unspecified; R25.1 Tremor, unspecified; E66.9 Obesity, unspecified; E87.70 Fluid overload, unspecified; G47.33 Obstructive sleep apnea (adult) (pediatric); Z79.82 Long term (current) use of aspirin; G89.29 Other chronic pain; I72.8 Aneurysm of other specified arteries; I27.20 Pulmonary hypertension, unspecified; M47.892 Other spondylosis, cervical region; M12.88 Other specific arthropathies, not elsewhere classified, other specified site; I48.0 Paroxysmal atrial fibrillation; Z95.1 Presence of aortocoronary bypass graft; Z79.899 Other long term (current) drug therapy; Z90.49 Acquired absence of other specified parts of digestive tract; Z98.42 Cataract extraction status, left eye; Z98.41 Cataract extraction status, right eye; Z87.81 Personal history of (healed) traumatic fracture; Z87.820 Personal history of traumatic brain injury; Z68.27 Body mass index [BMI] 27.0-27.9, adult; Z82.49 Family history of ischemic heart disease and other diseases of the circulatory system

== ENCOUNTER 2019-05-04 14:17 | Inpatient (IN) | payer MEDICARE ==
[~2019-05-04] VITALS: Ht 170.2 cm; Wt 71.5 kg
[~2019-05-04 14:17] MED LIST changes: +ACETAMINOPHEN325 M1 PO; +FLORANEX TABLE1 EACH PO; -GABAPENTIN 100100 MG PO; +LASIX 40 MG TAB40 M2 PO; +RYTHMOL SR225 MG PO; +TOPROL XL50 MG PO
[2019-05-04 16:00] VITALS: BP 96/61
[2019-05-04 18:16] VITALS: BP 93/51
[2019-05-04 18:17] VITALS: BP 96/51
[2019-05-04 18:58] LABS: URINE BILIRUBIN NEGATIVE (Negative); URINE BLOOD NEGATIVE (Negative); URINE CLARITY CLEAR; URINE COLOR YELLOW; URINE GLUCOSE-RANDOM NEGATIVE (Negative); URINE KETONES NEGATIVE (Negative); URINE LEUKOCYTES-REFLEX NEGATIVE (Negative); URINE NITRITE-REFLEX NEGATIVE (Negative); URINE PROTEIN NEGATIVE (Negative); URINE SPECIFIC GRAVITY <= 1.005 (1.005-1.030); URINE UROBILINOGEN 0.2 E.U./dl (0.2-1.0)
[2019-05-04 20:00] VITALS: BP 95/57
[2019-05-05 04:03] LABS: HEMATOCRIT 33.9 % (42.0-52.0); MCH 32.1 pg (26.0-34.0); MCHC 33.3 g/dL (28.0-37.0); MCV 96.5 fL (80.0-100.0); RBC 3.51 mil/uL (4.50-6.00); RDW-CV 14.2 % (10.5-14.5); WBC 3.3 thou/uL (4.0-11.0)
[2019-05-05 04:15] LABS: HEMOGLOBIN 11.3 gm/dL (14.0-18.0)
[2019-05-05 04:16] LABS: CALCIUM 7.7 mg/dL (8.5-10.1); CREATININE 0.6 mg/dL (0.6-1.3); POTASSIUM 3.2 mmol/L (3.5-5.1)
[2019-05-05 08:00] VITALS: BP 108/59
[2019-05-05 08:57] VITALS: BP 108/59
[2019-05-05 19:54] VITALS: BP 110/68
[2019-05-06 08:00] VITALS: BP 98/53
[2019-05-06 09:31] LABS: CALCIUM 8.4 mg/dL (8.5-10.1); CREATININE 0.7 mg/dL (0.6-1.3); HEMATOCRIT 39.1 % (42.0-52.0); HEMOGLOBIN 13.2 gm/dL (14.0-18.0); MAGNESIUM 2.1 mg/dL (1.8-2.4); MCH 32.4 pg (26.0-34.0); MCHC 33.6 g/dL (28.0-37.0); MCV 96.5 fL (80.0-100.0); MPV 7.9 fl. (7.2-11.1); POTASSIUM 4.1 mmol/L (3.5-5.1); RBC 4.06 mil/uL (4.50-6.00); RDW-CV 14.3 % (10.5-14.5); WBC 2.9 thou/uL (4.0-11.0)
[2019-05-06 19:49] VITALS: BP 97/57
[2019-05-07 04:43] LABS: HEMATOCRIT 35.3 % (42.0-52.0); MCH 32.9 pg (26.0-34.0); MCV 96.6 fL (80.0-100.0); MPV 6.8 fl. (7.2-11.1); RBC 3.66 mil/uL (4.50-6.00); WBC 4.1 thou/uL (4.0-11.0)
[2019-05-07 04:52] LABS: CALCIUM 8.2 mg/dL (8.5-10.1); CREATININE 0.5 mg/dL (0.6-1.3); MAGNESIUM 2.1 mg/dL (1.8-2.4); POTASSIUM 4.1 mmol/L (3.5-5.1)
[2019-05-07 08:11] VITALS: BP 92/59
[2019-05-07 11:22] VITALS: BP 91/58
[2019-05-07 18:10] VITALS: BP 93/55
[2019-05-07 19:00] VITALS: BP 100/56
[2019-05-08] VITALS (7 sets, daily range): BP systolic 77–101; BP diastolic 44–66
[2019-05-08 05:21] LABS: HEMATOCRIT 35.6 % (42.0-52.0); HEMOGLOBIN 12.2 gm/dL (14.0-18.0); MCH 32.6 pg (26.0-34.0); MCHC 34.2 g/dL (28.0-37.0); MCV 95.5 fL (80.0-100.0); MPV 7.2 fl. (7.2-11.1); RBC 3.73 mil/uL (4.50-6.00); RDW-CV 14.1 % (10.5-14.5); WBC 3.5 thou/uL (4.0-11.0)
[2019-05-08 05:30] LABS: CALCIUM 8.1 mg/dL (8.5-10.1); CREATININE 0.6 mg/dL (0.6-1.3); MAGNESIUM 2.1 mg/dL (1.8-2.4); POTASSIUM 3.8 mmol/L (3.5-5.1)
--- NOTE | 2019-05-08 11:26 | EKG ---
[place] [address] ELECTROCARDIOGRAM REPORT Name: REESE SCHULTE Room: [address] ADM IN M.R.#: [id number] Admission: 05/04/19 Attend Phys: El Holcomb MD Discharge: Date of : 43 Report #: [id number] THIS REPORT FOR: //name// [facility] Test Date: 2019-05-08 Test Time: 06:06:13 Pat Name: REESE SCHULTE Department: Room: [address] Gender: M Wood Carver: : 1945 Requested By: Eda Pitts Order Number: [id number] Jarvis MD: Leonardo Mayer Measurements Intervals [place] Rate: 85 P: 201 PA: 139 QRS: 67 QRSD: 116 T: 31 QT: 368 QTc: 438 Interpretive Statements Sinus or ectopic atrial tachycardia supraventricular premature complexes Incomplete right bundle branch block artifact noted Compared to ECG 04/25/2019 13:27:52 supraventricular premature complex(es) now present Electronically Signed On 05-08-2019 11:26:17 CDT by Leonardo Mayer [email or web address] <ELECTRONICALLY SIGNED> By: Leonardo Mayer MD, [facility] 05/08/19 1126 0606 0606 Leonardo Mayer MD, [facility] /EPI
--- NOTE | 2019-05-08 11:27 | EKG ---
[place] [address] ELECTROCARDIOGRAM REPORT Name: REESE SCHULTE Room: [address] ADM IN M.R.#: [id number] Admission: 05/04/19 Attend Phys: El Holcomb MD Discharge: Date of : 43 Report #: [id number] THIS REPORT FOR: //name// [facility] Test Date: 2019-05-08 Test Time: 06:16:13 Pat Name: REESE SCHULTE Department: Room: [address] Gender: M Referral Rn: : 1945 Requested By: El Holcomb Order Number: [id number] Jarvis MD: Leonardo Mayer Measurements Intervals [place] Rate: 85 P: [place]: QRS: 85 QRSD: 132 T: 40 QT: 412 QTc: 490 Interpretive Statements Atrial fibrillation Right bundle branch block Electronically Signed On 05-08-2019 11:26:43 CDT by Leonardo Mayer [email or web address] <ELECTRONICALLY SIGNED> By: Leonardo Mayer MD, [facility] 05/08/19 1126 0616 0616 Leonardo Mayer MD, FACC /EPI
[2019-05-09 08:18] VITALS: BP 92/57
[2019-05-09 19:30] VITALS: BP 104/56
[2019-05-10 07:55] VITALS: BP 102/53
[2019-05-10 20:00] VITALS: BP 98/62
[2019-05-11 02:50] VITALS: BP 98/58
[2019-05-11 08:00] VITALS: BP 93/59
[2019-05-11 20:04] VITALS: BP 90/51
[2019-05-12 04:36] VITALS: BP 103/62
[2019-05-12 08:12] VITALS: BP 106/59
[2019-05-12 19:22] VITALS: BP 116/63
[2019-05-13 08:29] VITALS: BP 115/68
[2019-05-13 20:00] VITALS: BP 113/60
[2019-05-14 20:00] VITALS: BP 87/52
[2019-05-15 08:24] VITALS: BP 89/58
[2019-05-15] MEDS ORDERED: PROPAFENONE 15150 MG PO (10:40)
[2019-05-15 19:38] VITALS: BP 105/62
[2019-05-16 07:27] VITALS: BP 107/66
[2019-05-16] MEDS ORDERED: VOLTAREN GEL 1100 G2 TOP (11:52)
[2019-05-16 12:15] VITALS: BP 107/66
== END 2019-05-16 14:30 | disposition home health service (06) | DRG 947 ==
LOC: M.REH 14:17
PROVIDERS: Internal Medicine; ADMIT Physical Medicine & Rehabilitation
DX: R53.81 Other malaise (principal); J18.9 Pneumonia, unspecified organism; E43 Unspecified severe protein-calorie malnutrition; I50.33 Acute on chronic diastolic (congestive) heart failure; J96.21 Acute and chronic respiratory failure with hypoxia; J96.22 Acute and chronic respiratory failure with hypercapnia; I77.79 Dissection of other specified artery; J44.0 Chronic obstructive pulmonary disease with (acute) lower respiratory infection; R19.7 Diarrhea, unspecified; G47.33 Obstructive sleep apnea (adult) (pediatric); I11.0 Hypertensive heart disease with heart failure; E03.9 Hypothyroidism, unspecified; I48.91 Unspecified atrial fibrillation; Z96.653 Presence of artificial knee joint, bilateral; M47.892 Other spondylosis, cervical region; I72.8 Aneurysm of other specified arteries; R07.9 Chest pain, unspecified; J20.9 Acute bronchitis, unspecified; I95.9 Hypotension, unspecified; I27.20 Pulmonary hypertension, unspecified; E87.6 Hypokalemia; Z68.24 Body mass index [BMI] 24.0-24.9, adult; Z87.820 Personal history of traumatic brain injury; Z98.84 Bariatric surgery status; Z90.49 Acquired absence of other specified parts of digestive tract; Z98.42 Cataract extraction status, left eye; Z98.41 Cataract extraction status, right eye; Z87.81 Personal history of (healed) traumatic fracture; Z99.81 Dependence on supplemental oxygen; Z74.01 Bed confinement status; Z79.82 Long term (current) use of aspirin; Z79.899 Other long term (current) drug therapy; Z87.891 Personal history of nicotine dependence; Z91.19 Patient's noncompliance with other medical treatment and regimen

== ENCOUNTER 2019-06-04 17:29 | Inpatient (IN) | payer MEDICARE ==
[~2019-06-04] VITALS: Ht 167.6 cm; Wt 77.0 kg
[~2019-06-04 17:29] MED LIST changes: +PROPAFENONE 15150 MG PO; +VOLTAREN GEL 1100 G2 TOP
[2019-06-04 17:34] VITALS: BP 145/87
[2019-06-04] MEDS ORDERED: CLONAZEPAM 1 MG1 M1 PO (17:46)
[2019-06-04] MEDS ORDERED: ZOLPIDEM TARTRA10 MG PO (17:46)
[2019-06-04] MEDS ORDERED: METOPROLOL SUCC50 MG PO (17:47)
[2019-06-04] MEDS ORDERED: ESCITALOPRAM OX20 MG PO (17:47)
[2019-06-04] MEDS ORDERED: RAPAFLO8 MG PO (17:47)
[2019-06-04] MEDS ORDERED: ANTIVERT25 MG PO (17:47)
[2019-06-04 18:04] LABS: ABSOLUTE EOSINOPHILS 0.1 thou/uL (0.0-0.7); ABSOLUTE LYMPHOCYTES 0.9 thou/uL (0.8-5.3); ABSOLUTE MONOCYTES 0.4 thou/uL (0.0-1.2); ABSOLUTE NEUTROPHILS 3.1 thou/uL (1.6-8.1); BASOPHILS 0.5 %; EOSINOPHILS 2.4 %; HEMATOCRIT 36.1 % (42.0-52.0); HEMOGLOBIN 12.3 gm/dL (14.0-18.0); LYMPHOCYTES 19.9 %; MCH 32.5 pg (26.0-34.0); MCHC 33.9 g/dL (28.0-37.0); MCV 95.7 fL (80.0-100.0); MONOCYTES 9.9 %; MPV 7.8 fl. (7.2-11.1); NUCLEATED RBCS 0 /100WBC; PLATELET COUNT* 160 thou/uL (150-400); POLYS 67.3 %; RBC 3.77 mil/uL (4.50-6.00); WBC 4.5 thou/uL (4.0-11.0)
[2019-06-04 18:14] LABS: CALCIUM 8.8 mg/dL (8.5-10.1); CREATININE 0.7 mg/dL (0.6-1.3); POTASSIUM 3.4 mmol/L (3.5-5.1)
[2019-06-04 18:23] LABS: APTT 29.9 Seconds (25.0-31.3); PROTIME 10.5 Seconds (9.20-11.50)
[2019-06-04 18:25] LABS: ALBUMIN 3.3 g/dL (3.4-5.0); TOTAL BILIRUBIN 1.1 mg/dL (<0.1-1.0); TOTAL PROTEIN 6.2 g/dL (6.4-8.2)
[2019-06-04 20:00] VITALS: BP 112/72
[2019-06-04 20:06] LABS: URINE BILIRUBIN NEGATIVE (Negative); URINE BLOOD NEGATIVE (Negative); URINE CLARITY CLEAR; URINE COLOR YELLOW; URINE GLUCOSE-RANDOM NEGATIVE (Negative); URINE KETONES NEGATIVE (Negative); URINE LEUKOCYTES-REFLEX NEGATIVE (Negative); URINE NITRITE-REFLEX NEGATIVE (Negative); URINE PROTEIN NEGATIVE (Negative)
[2019-06-04 20:15] VITALS: BP 136/84
[2019-06-05 00:31] VITALS: BP 105/62
[2019-06-05 04:00] VITALS: BP 128/75
[2019-06-05 05:37] LABS: ALKALINE PHOSPHATASE 225 U/L (46-116); ANION GAP 5 mmol/L (7-16); BUN 10 mg/dL (7-18); CALCIUM 8.4 mg/dL (8.5-10.1); CHLORIDE 106 mmol/L (98-107); CHOLESTEROL 153 mg/dL (<200); CO2 32 mmol/L (21-32); CREATININE 0.6 mg/dL (0.6-1.3); GLUCOSE 82 mg/dL (70-99); HDL CHOLESTEROL 73 mg/dL (>40); LDL CHOLESTEROL 70 mg/dL (<100); POTASSIUM 3.6 mmol/L (3.5-5.1); SGOT 33 U/L (15-37); SGPT 49 U/L (30-65); SODIUM 143 mmol/L (136-145); TC:HDL 2.1 Ratio (Not establshd); TOTAL BILIRUBIN 1.1 mg/dL (<0.1-1.0); TRIGLYCERIDE 54 mg/dL (<150); VLDL 11 mg/dL (<40)
[2019-06-05 05:42] LABS: SERUM ASSESSMENT Clear
[2019-06-05 08:00] VITALS: BP 132/66
[2019-06-05 11:09] LABS: CALCIUM 9.1 mg/dL (8.5-10.1); CREATININE 0.6 mg/dL (0.6-1.3); MAGNESIUM 1.9 mg/dL (1.8-2.4); POTASSIUM 3.8 mmol/L (3.5-5.1)
[2019-06-05 12:44] VITALS: BP 142/76
--- NOTE | 2019-06-05 18:00 | EKG ---
[place] [address] ELECTROCARDIOGRAM REPORT Name: REESE SCHULTE Room: [address] ADM IN .R.#: [id number] Admission: 06/04/19 Attend Phys: Layne López Discharge: Date of : 43 Report #: [id number] THIS REPORT FOR: //name// [facility] ED Test Date: 2019-06-04 Test Time: 17:57:15 Pat Name: REESE SCHULTE Department: Room: [facility] Gender: M Animal Control Officer: : 1945 Requested By: Rogerio Funez Order Number: [id number] MD: Leonardo Mayer Measurements Intervals [place] Rate: 77 P: 37 AL: 214 QRS: 71 QRSD: 146 T: 0 QT: 451 QTc: 511 Interpretive Statements Sinus rhythm Borderline prolonged AL interval Right bundle branch block Compared to ECG 05/08/2019 06:16:13 Atrial fibrillation no longer present Electronically Signed On 06-05-2019 18:00:06 CDT by Leonardo Mayer [email or web address] <ELECTRONICALLY SIGNED> By: Leonardo aMyer MD, [facility] 06/05/19 1800 175 175 Leonardo Mayer MD, [facility] /EPI
[2019-06-05 18:03] VITALS: BP 117/64
[2019-06-05 20:00] VITALS: BP 109/72
[2019-06-05 23:08] LABS: GLYCOHEMOGLOBIN (HGB A1C) 4.7 % (4.8-5.6)
[2019-06-06] VITALS: BP 126/66
[2019-06-06 04:00] VITALS: BP 98/61
[2019-06-06 08:00] VITALS: BP 122/66
[2019-06-06 11:59] VITALS: BP 97/59
[2019-06-06 15:58] VITALS: BP 104/60
[2019-06-06 20:00] VITALS: BP 99/58
[2019-06-07] VITALS: BP 90/52
[2019-06-07 03:45] VITALS: BP 103/57
[2019-06-07 08:00] VITALS: BP 104/66
[2019-06-07] MEDS ORDERED: NORCO 10-325 T1 EACH PO (14:48)
[2019-06-07 14:50] VITALS: BP 104/66
[2019-06-07 16:41] VITALS: BP 104/66
--- NOTE | 2019-06-09 14:24 | CON ---
[address] [address] CONSULTATION Name: REESE SCHULTE SR Room: [address] IN M.R.#: [id number] Admission: 06/04/19 Attend Phys: Layne López Discharge: 06/07/19 Date of : 43 Report #: [id number] THIS REPORT FOR: //name// CC: Areli Harper DATE OF SERVICE: 06/05/2019 HISTORY OF PRESENT ILLNESS: This is a 74-year-old male patient who is a very poor historian. He did not provide me any reliable history. He said he is unstable on his feet. I do not know how long it is going on. He had a fall, the circumstances which is not very clear to me, but he sustained a significant injury. He had multiple problems in the past. He apparently had a bypass surgery, carpal tunnel syndrome surgery, and hypothyroidism. There was a concern about a stroke, but this patient had an MRI of the brain done and that does not appear to be showing any stroke, but it does show some atrophy. REVIEW OF SYSTEMS: A 14-point review of system was carried out. He had an accidental fall. Record indicates he has a history of heart failure, CHF, rib fracture and there is a history of atrial fibrillation, it is not clear the circumstances leading to his fall. He has an obstructive sleep apnea, radiculopathy, vertigo, weakness, which is generalized. This was his relevant 14-point review of systems. PAST MEDICAL HISTORY: Positive for multiple problems as summarized above. One of the records indicates he also had a history of atrial fibrillation. FAMILY HISTORY: Negative for stroke. SOCIAL HISTORY: He says he does not drink alcohol. PHYSICAL EXAMINATION: Indicate this patient is alert and responsive, but it is tough to tell about his memory. It looks diminished, but I do not know what his baseline is. His speech is difficult to understand some time, but he thinks that is his baseline. He is not fully oriented. Cranial nerve examination 2-12 was attempted. It does not appear to be showing any focality. He moves all four extremities. His reflexes are absent in the lower extremities. His position sense is present. His tone looks symmetrical. He is able to do zvsypc-ro-rhli. He did not cooperate with the fundus examination. Cardiac examination appeared unremarkable. He does not appear to have any respiratory difficulty or rhonchi. His blood pressure is 132/66, pulse is 73, temperature is 97.5. His pulses are difficult to feel. LABORATORY DATA: His white count is 4.5. His sodium is normal. He had MRIs and I reviewed those and that does [place] [address] CONSULTATION Name: REESE SCHULTE SR Room: [address] IN [facility]#: [id number] Admission: 06/04/19 Attend Phys: Layne López Discharge: 06/07/19 Date of : 43 Report #: [id number] IMPRESSION: I am not sure what the etiology of the patient's symptom is. He is a poor historian. I think it is a combination of factors. He does appear to have absent reflexes in the lower extremities. He has no evidence for stroke. We will see how he does with physical therapy. Because of bypass surgery, I will check his B12 and copper and follow up with you tomorrow. More than 50 minutes of time was spent taking care of this patient today and majority was done counseling and coordinating. <ELECTRONICALLY SIGNED> By: Edison Calderon MD 06/09/19 1424 1709 [id number] Calderon MD /nt
== END 2019-06-07 17:27 | disposition home health service (06) | DRG 183 ==
LOC: M.ERS 17:29 → M.TBA-ER 19:08 → M.2W 19:08
PROVIDERS: Emergency Medicine Emergency Medical Services; Family Medicine; ADMIT Internal Medicine
DX: S22.42XA Multiple fractures of ribs, left side, initial encounter for closed fracture (principal); G93.41 Metabolic encephalopathy; J96.90 Respiratory failure, unspecified, unspecified whether with hypoxia or hypercapnia; F41.9 Anxiety disorder, unspecified; F32.9 Major depressive disorder, single episode, unspecified; E53.8 Deficiency of other specified B group vitamins; D50.9 Iron deficiency anemia, unspecified; I10 Essential (primary) hypertension; E03.9 Hypothyroidism, unspecified; I48.91 Unspecified atrial fibrillation; Z96.653 Presence of artificial knee joint, bilateral; Z98.84 Bariatric surgery status; Z90.49 Acquired absence of other specified parts of digestive tract; Z98.41 Cataract extraction status, right eye; Z98.42 Cataract extraction status, left eye; Z87.820 Personal history of traumatic brain injury; Z79.899 Other long term (current) drug therapy; Z79.82 Long term (current) use of aspirin; Z91.81 History of falling; Y93.89 Activity, other specified; Y99.8 Other external cause status; Y92.092 Bedroom in other non-institutional residence as the place of occurrence of the external cause

== ENCOUNTER 2020-07-12 16:31 | Inpatient (IN) | payer MEDICARE ==
[~2020-07-12] VITALS: Ht 170.2 cm; Wt 82.6 kg
[~2020-07-12 16:31] MED LIST changes: +ANTIVERT25 MG PO; +ESCITALOPRAM OX20 MG PO; +METOPROLOL SUCC50 MG PO; +NORCO 10-325 T1 EACH PO; +ZOLPIDEM TARTRA10 MG PO
[2020-07-12 16:38] VITALS: BP 111/88
[2020-07-12 17:00] LABS: ABSOLUTE BASOPHILS 0.1 thou/uL (0.0-0.2); ABSOLUTE EOSINOPHILS 0.1 thou/uL (0.0-0.7); ABSOLUTE MONOCYTES 0.4 thou/uL (0.0-1.2); ABSOLUTE NEUTROPHILS 2.8 thou/uL (1.6-8.1); BASOPHILS 1.1 %; EOSINOPHILS 2.4 %; HEMATOCRIT 40.1 % (42.0-52.0); HEMOGLOBIN 13.6 gm/dL (14.0-18.0); LYMPHOCYTES 36.4 %; MCH 32.2 pg (26.0-34.0); MCHC 33.9 g/dL (28.0-37.0); MONOCYTES 8.3 %; MPV 7.2 fl. (7.2-11.1); NUCLEATED RBCS 0 /100WBC; PLATELET COUNT* 165 thou/uL (150-400); POLYS 51.8 %; RBC 4.22 mil/uL (4.50-6.00); RDW-CV 13.6 % (10.5-14.5); WBC 5.4 thou/uL (4.0-11.0)
[2020-07-12 17:08] LABS: CALCIUM 7.6 mg/dL (8.5-10.1); CREATININE 0.5 mg/dL (0.6-1.3); POTASSIUM 3.9 mmol/L (3.5-5.1)
[2020-07-12 17:12] LABS: APTT 26.2 Seconds (25.0-31.3); PROTIME 10.8 Seconds (9.20-11.50)
[2020-07-12 17:20] LABS: ALBUMIN 3.5 g/dL (3.4-5.0); TOTAL BILIRUBIN 0.5 mg/dL (<0.1-1.0); TOTAL PROTEIN 6.4 g/dL (6.4-8.2)
[2020-07-12 20:00] VITALS: BP 120/67
[2020-07-12 20:08] VITALS: BP 112/70
[2020-07-13] VITALS (8 sets, daily range): BP systolic 101–138; BP diastolic 50–75
[2020-07-13 04:23] LABS: ABSOLUTE EOSINOPHILS 0.1 thou/uL (0.0-0.7); ABSOLUTE LYMPHOCYTES 1.3 thou/uL (0.8-5.3); ABSOLUTE MONOCYTES 0.4 thou/uL (0.0-1.2); ABSOLUTE NEUTROPHILS 2.1 thou/uL (1.6-8.1); BASOPHILS 0.9 %; EOSINOPHILS 3.4 %; HEMOGLOBIN 12.3 gm/dL (14.0-18.0); LYMPHOCYTES 33.5 %; MCH 31.8 pg (26.0-34.0); MCHC 33.1 g/dL (28.0-37.0); MCV 96.1 fL (80.0-100.0); MONOCYTES 10.4 %; MPV 7.7 fl. (7.2-11.1); NUCLEATED RBCS 0 /100WBC; PLATELET COUNT* 149 thou/uL (150-400); POLYS 51.8 %; RBC 3.85 mil/uL (4.50-6.00); RDW-CV 13.8 % (10.5-14.5)
[2020-07-13 04:43] LABS: CALCIUM 7.4 mg/dL (8.5-10.1); CREATININE 0.5 mg/dL (0.6-1.3); POTASSIUM 3.6 mmol/L (3.5-5.1)
--- NOTE | 2020-07-13 05:31 | NUR ---
RECEIVED REPORT FROM RN [facility]ONE[facility] AT 2875. PT ARRIVED TO UNIT AT 2014. NURSING ASSESSMENT COMPLETED. TRADER IN PLACE, TRACING SR. VOICED NO CONCERNS THIS SHIFT. NPO AFTER MIDNIGHT FOR CARDIOLOGY CONSULT. HOURLY ROUNDING COMPLETED. CALL LIGHT WITHIN REACH.
[2020-07-13 06:22] LABS: AMP/METHAMP Negative (Negative); BARBITURATES Negative (Negative); BENZODIAZEPINES Negative (Negative); COCAINE Negative (Negative); METHADONE Negative (Negative); OPIATES Negative (Negative); PCP Negative (Negative); THC Negative (Negative)
--- NOTE | 2020-07-13 15:03 | NUR ---
CM SPOKE TO THE PT TO DISCUSS CM ASSESSMENT. PT ALERT AND ORIENTED, BUT FORGETFUL. PT INDEPENDENT WITH ADL'S. PT RESIDES AT HOME WITH SPOUSE AND SHE ASSIST HIM NEEDED. PT USES HOME O2 @ 4L, AND ALSO OWNS A CPAP BUT INFORMS THAT HE DOES NOT USES IT. PT USES A WALKER FOR MOBILITY, BUT ALSO OWNS A CANE. PT HAS HX OF HH WITH SHELL. PT HAS SNF HX AT [facility]. PT HAS HX OF ACUTE INPT REHAB. CM WILL REMAIN AVAILABLE TO ASSIST AND FOLLOW NEEDED.
--- NOTE | 2020-07-13 16:52 | NUR ---
ASSUMED CARE OF PATIENT THIS AM AT 0730. PATIENT IS ALERT AND ORIENTED X 4. HE C/O CHEST PAIN THROUGHOUT THE DAY AT 8 ON PAIN SCALE. TELE SHOWS SR WITH 1DAVB AND A BBB. PATIENT IS VOIDING PER URINAL. PATIENT MEDICATED FOR PAIN. WILL CONTINUE TO MONITOR PAIN. PATIENT IS TAKING HIS DIET WELL. NO FALLS OR INJURY
[2020-07-14] VITALS: BP 115/60
--- NOTE | 2020-07-14 03:02 | NUR ---
ASSUMED CARE OF PT AT 1900. PT IS ALERT. VSS. PERRLA. PT IS IN SINUS RYTHM ON THE TELEMETRY. PT IS RESTING COMFORTABLY IN BED. RESPIRATIONS ARE EVEN AND NONLABORED. WILL CONTINUE TO MONITOR PT.
[2020-07-14 04:00] VITALS: BP 92/57
[2020-07-14 08:00] VITALS: BP 100/73
[2020-07-14 12:00] VITALS: BP 100/67
--- NOTE | 2020-07-14 12:43 | EKG ---
[place] [address] ELECTROCARDIOGRAM REPORT Name: REESE SCHULTE Room: [address] ADM IN M.R.#: [id number] Admission: 07/12/20 Attend Phys: Дмитрий Mauricio, Discharge: Date of : 43 Date of Service: 07/13/20 0555 Report #: [id number] THIS REPORT FOR: //name// [facility] Test Date: 2020-07-13 Test Time: 05:55:11 Pat Name: REESE SCHULTE Department: Room: [address] Gender: M Director Of Slot Operations: SIMONA : 1945 Requested By: Norbert Sy Order Number: [id number] Jarvis MD: Norbert Sy Measurements Intervals [place] Rate: 65 P: [place]: QRS: 78 QRSD: 128 T: 65 QT: 470 QTc: 489 Interpretive Statements Sinus rhythm right bundle branch block Artifact in lead(s) I,II,III,aVR,aVL,aVF,V1,V2,V3,V4,V5,V6 Compared to ECG 07/12/2020 19:22:53 No significant changes noted Electronically Signed On 07-14-2020 12:43:44 MICROARRAY SPECIALIST by Norbert Sy [email or web address] <ELECTRONICALLY SIGNED> By: Norbert Sy MD, FACC 07/14/20 1243 0555 0555 Norbert Sy MD, FAC /EPI
--- NOTE | 2020-07-14 12:43 | EKG ---
[place] [address] ELECTROCARDIOGRAM REPORT Name: REESE SCHULTE Room: [address] ADM IN M.R.#: [id number] Admission: 07/12/20 Attend Phys: Дмитрий Mauricio, Discharge: Date of : 43 Date of Service: 07/12/201921 Report #: [id number] THIS REPORT FOR: //name// [facility] ED Test Date: 2020-07-12 Test Time: 19:22:53 Pat Name: REESE SCHULTE Department: Room: [facility] Gender: M Contour Stitcher: MAT : 1945 Requested By: Yadira Vaughn Order Number: [id number] MD: Norbert Sy Measurements Intervals [place] Rate: 71 P: 79 NC: 219 QRS: 75 QRSD: 139 T: 62 QT: 481 QTc: 523 Interpretive Statements Sinus rhythm Borderline prolonged NC interval Prolonged QT interval Right bundle branch block Compared to ECG 06/04/2019 17:57:15 No significant changes Electronically Signed On 07-14-2020 12:42:54 CAVALRY OFFICER by Norbert Sy [email or web address] <ELECTRONICALLY SIGNED> By: Norbert Sy MD, FACC 07/14/20 1242 21 21 Norbert Sy MD, FAC /EPI
--- NOTE | 2020-07-14 14:18 | NUR ---
ASSUMED CARE OF PATIENT THIS AM AT 0730. PATIENT IS ALERT AND ORIENTED X 4. HE C/O CONTINUED CHEST PAIN THIS AM. MEDICATED X 1 FOR PAIN. TELE HAS SHOW AFIB TODAY. HIS VITALS HAVE BEEN STABLE. DR IN TO ROUND AND DISCHARGE ORDERS WERE WRITTEN. PATIENT SEE BY PT TODAY. HE HAS BEEN UP WITH THE WALKER. HE IS CURRENTLY UP IN THE CHAIR. WILL DISCHARGE TO HOME TODAY.
[2020-07-14 14:23] VITALS: BP 100/67
--- NOTE | 2020-07-15 11:33 | EKG ---
[place] [address] ELECTROCARDIOGRAM REPORT Name: REESE SCHULTE Room: [address] IN M.R.#: [id number] Admission: 07/12/20 Attend Phys: Дмитрий Mauricio, Discharge: 07/14/20 Date of : 43 Date of Service: 07/12/20 1634 Report #: [id number] THIS REPORT FOR: //name// [facility] ED Test Date: 2020-07-12 Test Time: 16:34:58 Pat Name: REESE SCHULTE Department: Room: [facility] Gender: M Senior Pricing Analyst: TP : 1945 Requested By: Yadira Vaughn Order Number: [id number] MD: Leonardo Mayer Measurements Intervals [place] Rate: 69 P: 43 VT: 204 QRS: 78 QRSD: 141 T: 47 QT: 472 QTc: 506 Interpretive Statements Sinus rhythm Right bundle branch block Compared to ECG 06/04/2019 17:57:15 No significant changes Electronically Signed On 07-15-2020 11:32:55 DIRECTOR GLOBAL by Leonardo Mayer [email or web address] <ELECTRONICALLY SIGNED> By: Leonardo Mayer MD, FACC 07/15/20 1132 1634 1634 Leonardo Mayer MD, [facility] /EPI
--- NOTE | 2020-07-15 11:35 | EKG ---
[place] [address] ELECTROCARDIOGRAM REPORT Name: REESE SCHULTE Room: [address] IN M.R.#: [id number] Admission: 07/12/20 Attend Phys: Дмитрий Mauricio, Discharge: 07/14/20 Date of : 43 Date of Service: 07/13/20 0600 Report #: [id number] THIS REPORT FOR: //name// [facility] Test Date: 2020-07-13 Test Time: 06:00:26 Pat Name: REESE SCHULTE Department: Room: [address] Gender: M Senior Payroll Specialist: SIMONA : 1945 Requested By: Дмитрий Mauricio Order Number: [id number] Jarvis MD: Leonardo Mayer Measurements Intervals [place] Rate: 165 P: [place]: QRS: 106 QRSD: 102 T: 256 QT: 381 QTc: 632 Interpretive Statements sinus rhythm incomplete RBBB Nonspecific T abnormalities, diffuse leads Artifact in lead(s) I,aVR,aVL,V1,V2,V3,V4,V5,V6 Compared to ECG 07/13/2020 05:55:11 no change Electronically Signed On 07-15-2020 11:35:04 PULL THROUGH HOOKER by Leonardo Mayer [email or web address] <ELECTRONICALLY SIGNED> By: Leonardo Mayer MD, FACC 07/15/20 1135 9 9 Leonardo Mayer MD, [facility] /EPI
--- NOTE | 2020-07-15 11:36 | EKG ---
[place] [address] ELECTROCARDIOGRAM REPORT Name: REESE SCHULTE Room: [address] IN M.R.#: [id number] Admission: 07/12/20 Attend Phys: Дмитрий Mauricio, Discharge: 07/14/20 Date of : 43 Date of Service: 07/13/20 0601 Report #: [id number] THIS REPORT FOR: //name// [facility] Test Date: 2020-07-13 Test Time: 06:01:52 Pat Name: REESE SCHULTE Department: Room: [address] Gender: M Compliance Representative: SIMONA : 1945 Requested By: Дмитрий Mauricio Order Number: [id number] Jarvis MD: Leonardo Mayer Measurements Intervals [place] Rate: 58 P: 75 OR: 165 QRS: 81 QRSD: 133 T: 59 QT: 470 QTc: 462 Interpretive Statements Sinus rhythm Atrial premature complexes Right bundle branch block Compared to ECG 07/13/2020 06:00:26 Atrial premature complex(es) now present Electronically Signed On 07-15-2020 11:36:01 SOCIAL WORK JOB TITLES by Leonardo Mayer [email or web address] <ELECTRONICALLY SIGNED> By: Leonardo Mayer MD, [facility] 07/15/20 1136 0601 0601 Leonardo Mayer MD, [facility] /EPI
--- NOTE | 2020-07-16 07:50 | CON ---
[address] [address] CONSULTATION Name: REESE SCHULTE SR Room: [address] IN M.R.#: [id number] Admission: 07/12/20 Attend Phys: Дмитрий Mauricio MD Discharge: 07/14/20 Date of : 43 Report #: [id number] THIS REPORT FOR: //name// cc: Areli Hernandez Maggie M. DO ~ DATE OF SERVICE: 07/13/2020 INDICATION: Chest pain. HISTORY OF PRESENT ILLNESS: The patient is a very pleasant 75-year-old gentleman who is well known to us. He has a history of paroxysmal atrial fibrillation. He is maintaining sinus rhythm on propafenone. He has had no recurrence of his atrial fibrillation recently. There is no history of coronary artery disease. The patient was seen in the Emergency Room and noted some left of sternum chest discomfort that radiated up towards the shoulder. The pain is reproducible with palpation and worse with a deep breath. Cardiac enzymes are unremarkable x 3 sets. EKG does not show any acute ST elevation or depression. The pain has been waxing and waning and persistent. He is without other cardiac complaint at this time. PAST MEDICAL HISTORY: 1. Paroxysmal atrial fibrillation. 2. Obstructive sleep apnea. 3. Chronic diastolic heart failure. 4. Gastric bypass surgery. 5. Appendectomy. 6. Hammertoe surgery. 7. Right shoulder surgery. 8. Carpal tunnel surgery. 9. Cholecystectomy. 10. Bilateral cataracts. 11. Hypothyroidism. 12. Bilateral knee replacements. 13. Left leg tibia fracture. 14. Left humerus fracture. 15. Right wrist fracture. 16. Traumatic brain injury. FAMILY HISTORY: Noncontributory. SOCIAL HISTORY: The patient is a nonsmoker [place] [address] CONSULTATION Name: REESE SCHULTE SR Room: [address]#: [id number] Admission: 07/12/20 Attend Phys: Дмитрий Mauricio MD Discharge: 07/14/20 Date of : 43 Report #: [id number] REVIEW OF SYSTEMS: A 14-point review of systems as per HPI, otherwise unremarkable. PHYSICAL EXAMINATION: VITAL SIGNS: Blood pressure 106/57, pulse 75 and regular. GENERAL: This is a pleasant gentleman in no distress. Mood and affect appropriate. HEENT: The patient is edentulous. Extraocular muscles intact. Mucous membranes moist. NECK: Shows no jugular venous distention. There are no carotid bruits. CHEST: Reveals clear lung manuel without wheezes or rales. CARDIOVASCULAR: Reveals a regular rhythm without gallop or murmur. ABDOMEN: Reveals normal bowel sounds. The abdomen is soft, nontender. EXTREMITIES: Shows no edema. SKIN: Dry. IMPRESSION AND RECOMMENDATIONS: 1. Atypical chest pain. Suspect musculoskeletal. We will give Toradol p.r.n. and one time now to see if that alleviates the discomfort. I doubt this is cardiac. No further cardiac workup at this time. 2. Paroxysmal atrial fibrillation, maintaining sinus rhythm. He is not an anticoagulation candidate due to fall history. 3. Hypertension. Blood pressure low normal presently. Appears to be adequately controlled. The patient appears stable from a cardiac standpoint. We will follow as needed. <ELECTRONICALLY SIGNED> By: Norbert Sy MD, FACC 07/16/20 0750 1542 1955Norbert Sy MD, FACC /nt
== END 2020-07-14 15:50 | disposition home or self-care (01) | DRG 392 ==
LOC: M.ERS 16:31 → M.TBA-ER 19:07 → M.2W 19:24
PROVIDERS: Physician Assistant; ADMIT Internal Medicine; ATTEND Internal Medicine
DX: K21.9 Gastro-esophageal reflux disease without esophagitis (principal); J96.10 Chronic respiratory failure, unspecified whether with hypoxia or hypercapnia; I50.32 Chronic diastolic (congestive) heart failure; E03.9 Hypothyroidism, unspecified; R61 Generalized hyperhidrosis; I48.0 Paroxysmal atrial fibrillation; G47.33 Obstructive sleep apnea (adult) (pediatric); I11.0 Hypertensive heart disease with heart failure; M19.90 Unspecified osteoarthritis, unspecified site; Z96.653 Presence of artificial knee joint, bilateral; Z20.828 Contact with and (suspected) exposure to other viral communicable diseases; Z87.820 Personal history of traumatic brain injury; Z90.49 Acquired absence of other specified parts of digestive tract; Z98.84 Bariatric surgery status; Z98.42 Cataract extraction status, left eye; Z98.41 Cataract extraction status, right eye; Z79.82 Long term (current) use of aspirin; Z79.899 Other long term (current) drug therapy; R07.89 Other chest pain

== ENCOUNTER 2020-12-10 16:46 | Inpatient (IN) | payer MEDICARE ==
[~2020-12-10] VITALS: Ht 170.2 cm; Wt 85.7 kg
[2020-12-10 16:52] VITALS: BP 164/93
[2020-12-10 18:34] LABS: ABSOLUTE LYMPHOCYTES 0.9 thou/uL (0.8-5.3); ABSOLUTE MONOCYTES 0.5 thou/uL (0.0-1.2); ABSOLUTE NEUTROPHILS 7.7 thou/uL (1.6-8.1); BASOPHILS 0.2 %; HEMATOCRIT 45.7 % (42.0-52.0); HEMOGLOBIN 15.2 gm/dL (14.0-18.0); LYMPHOCYTES 9.5 %; MCH 31.6 pg (26.0-34.0); MCHC 33.3 g/dL (28.0-37.0); MONOCYTES 5.4 %; MPV 7.8 fl. (7.2-11.1); NUCLEATED RBCS 0 /100WBC; PLATELET COUNT* 168 thou/uL (150-400); POLYS 84.9 %; RDW-CV 14.1 % (10.5-14.5)
[2020-12-10] MEDS ORDERED: FLOMAX0.4 MG PO (18:37)
[2020-12-10 18:41] LABS: CREATININE 0.5 mg/dL (0.6-1.3); POTASSIUM 3.5 mmol/L (3.5-5.1)
[2020-12-10 18:47] LABS: ALBUMIN 3.7 g/dL (3.4-5.0); TOTAL BILIRUBIN 1.2 mg/dL (<0.1-1.0); TOTAL PROTEIN 7.3 g/dL (6.4-8.2)
[2020-12-10 18:58] LABS: PROTIME 10.9 Seconds (9.20-11.50)
[2020-12-10 20:32] LABS: URINE BILIRUBIN NEGATIVE (Negative); URINE BLOOD TRACE (Negative); URINE CLARITY CLEAR; URINE COLOR YELLOW; URINE GLUCOSE-RANDOM NEGATIVE (Negative); URINE KETONES TRACE (Negative); URINE LEUKOCYTES-REFLEX NEGATIVE (Negative); URINE NITRITE-REFLEX NEGATIVE (Negative); URINE PROTEIN NEGATIVE (Negative); URINE UROBILINOGEN 0.2 E.U./dl (0.2-1.0)
[2020-12-10] MEDS ORDERED: LEXAPRO20 MG PO (20:54)
[2020-12-10 21:20] VITALS: BP 156/97
[2020-12-10 21:39] VITALS: BP 150/91
--- NOTE | 2020-12-10 21:40 | NUR ---
PT ADMITTED TO FLOOR PER CART ACCOMPANIED BY ER STAFF WITH BELONGINGS. ORIENTED TO ROOM AND CALL LITE. AOX4, PLEASANT. REQUESTING PAIN MED AND HOME SLEEP AIDE-DR TO BE NOTIFIED. LWRIST SL IV PLACED ON PUMP FOR INFUSION. PT INSTRUCTED IN NPO AFTER MIDNIGHT AND BEDREST ORDERS AND VERBALIZES UNDERSTANDING. HISTORY OBTAINED AND ASSESSMENT PERFORMED, SEE ADMIT NOTES. PT DOESNT WANT TO CALL TONIGHT "SHE HAD EYE SURGERY AND NEEDS TO REST TONIGHT". CALL LITE IN EASY REACH, BED ALRM ON FOR SAFETY.
--- NOTE | 2020-12-11 04:26 | NUR ---
NEW ADMIT THIS SHIFT. AOX4, PLEASANT. BEDREST OVERNIGHT, PT TURNED AND REPOSITIONED HE WOULD ALLOW FOR SKIN CARE AND COMFORT. CO R HIP AND LEG PAIN AND RELUCTANT TO TURN VERY MUCH. INCONTINENT URINE AND USING URINAL TO VOID OVERNIGHT. LWRIST IVF INFUSING PER PUMP. FENTANYL GIVEN ONCE FOR PAIN WITH GOOD RESULT. AMBIEN GIVEN PER PT REQUEST WITH GOOD RESULT. NO LABS THIS MORNING. HAS BEEN NPO SINCE MIDNIGHT, ORTHO CONSULTING. O2 2L HS PER HOME. CALL LITE IN EASY REACH AND BED ALARM ON FOR SAFETY.
[2020-12-11 07:50] VITALS: BP 119/93
--- NOTE | 2020-12-11 11:19 | EKG ---
[place] [address] ELECTROCARDIOGRAM REPORT Name: REESE SCHULTE Room: [address] IN [facility]#: [id number] Admission: 12/10/20 Attend Phys: Eda Pitts, Discharge: Date of : 43 Date of Service: 12/10/20 1849 Report #: [id number] THIS REPORT FOR: //name// [facility] ED Test Date: 2020-12-10 Test Time: 18:49:21 Pat Name: REESE SCHULTE Department: Room: Gender: M Admissions Nurse: YULIET : 1945 Requested By: Jina Moya Order Number: [id number] MD: Leonardo Mayer Measurements Intervals [place] Rate: 90 P: 47 DE: 204 QRS: 77 QRSD: 140 T: 35 QT: 407 QTc: 498 Interpretive Statements Sinus rhythm Right bundle branch block Baseline wander in lead(s) V1,V2,V3,V4,V5,V6 Compared to ECG 07/13/2020 06:01:52 Atrial premature complex(es) no longer present Electronically Signed On 12-11-2020 11:19:05 CDT by Leonardo Mayer [email or web address] <ELECTRONICALLY SIGNED> By: Leonardo Mayer MD, [facility] 12/11/20 1119 1849 1849 Leonardo Mayer MD, [facility] /EPI
[2020-12-11 11:35] VITALS: BP 119/93
--- NOTE | 2020-12-11 13:57 | NUR ---
Pt is A&O. Resides at home with . Normally independent, assists prn. Pt has a walker and cane at home that he can use for mobility. Pt has home o2 and a cpap at home through [facility]. Hx of [facility]. Hx of skilled at [facility]. Hx of ARU. Pt to have surgery today, hopeful to be able to dc home with HH once medically stable, but open to ARU if needed. Therapies to be ordered post surgery. Following.
--- NOTE | 2020-12-11 16:26 | NUR ---
PT RETURNED FROM SURGERY. PT ORIENTED TO ROOM. FALL RISK PRECAUTIONS IN PLACE. PT RESTING.
[2020-12-11 16:42] VITALS: BP 104/62
--- NOTE | 2020-12-11 16:52 | NUR ---
PT REMAINED ALERT AND ORIENTED. PT WENT DOWN FOR SURGERY. PAIN MEDS GIVEN ORDERED. FALL RISK PRECAUTIONS IN PLACE. HOURLY ROUNDING COMPLETED.
[2020-12-12] VITALS: BP 112/64
[2020-12-12 04:35] LABS: HEMATOCRIT 36.5 % (42.0-52.0); MCH 31.7 pg (26.0-34.0); MCHC 32.8 g/dL (28.0-37.0); MCV 96.7 fL (80.0-100.0); MPV 8.2 fl. (7.2-11.1); RBC 3.78 mil/uL (4.50-6.00); RDW-CV 14.4 % (10.5-14.5); WBC 7.9 thou/uL (4.0-11.0)
[2020-12-12 04:43] LABS: CALCIUM 7.9 mg/dL (8.5-10.1); CREATININE 0.6 mg/dL (0.6-1.3); POTASSIUM 3.8 mmol/L (3.5-5.1)
[2020-12-12 08:22] VITALS: BP 110/64
--- NOTE | 2020-12-12 14:02 | NUR ---
Therapies to see. RENITA. JUAN to be consulted.
[2020-12-12 16:00] VITALS: BP 86/54
--- NOTE | 2020-12-12 18:14 | NUR ---
PATIENT RESTING IN BED. AT BEDSIDE. INCISION TO RIGHT HIP, UNABLE TO ASSESS DUE TO DRESSING. DRESSING C/D/I. CLARENCE HOSE IN PLACE BILATERALLY. FEET SCD'S IN PLACE, INFLATING AND DEFLATING. TRIANGLE WEDGE BEING USED. SAT 94% ON 4L OXYGEN, NC. IV TO LEFT WRIST INFUSING 1/2 NORMAL SALINE @80. DRESSING C/D/I. C/O PAIN/DISCOMFORT. OXYCODONE GIVEN X2. PATIENT REFUSED SHOWER TODAY. ALL QUESTIONS AND CONCERNS ADDRESSED.
[2020-12-12 23:40] VITALS: BP 113/63
[2020-12-13 04:24] LABS: HEMATOCRIT 31.7 % (42.0-52.0); HEMOGLOBIN 10.6 gm/dL (14.0-18.0); MCH 32.2 pg (26.0-34.0); MCHC 33.5 g/dL (28.0-37.0); MCV 96.1 fL (80.0-100.0); MPV 7.9 fl. (7.2-11.1); RBC 3.3 mil/uL (4.50-6.00); RDW-CV 13.9 % (10.5-14.5); WBC 5.2 thou/uL (4.0-11.0)
[2020-12-13 06:11] LABS: CALCIUM 7.6 mg/dL (8.5-10.1); CREATININE 0.7 mg/dL (0.6-1.3); POTASSIUM 3.3 mmol/L (3.5-5.1)
--- NOTE | 2020-12-13 06:22 | NUR ---
PATIENT SLEPT MOST OF THE NIGHT. DRESSING TO RIGHT HIP REMAINS IN PLACE. PATIENT WAS GIVEN PAIN MEDICINE ONCE THIS SHIFT. WILL CONTINUE TO MONITOR.
[2020-12-13 09:25] VITALS: BP 84/47
[2020-12-13 09:28] VITALS: BP 97/42
[2020-12-13 11:05] VITALS: BP 103/37
--- NOTE | 2020-12-13 12:31 | NUR ---
Pt medically stable to dc, [facility] full. Discussed [facility] with Pt and , Pt prefers to dc home with HH, wants ARU. Pt consented to CM contacting ARU for availablity and to fax referral. MICHELLE Raman to assess Pt for ARU today, CM to fax consult once received. CM faxed other clinicals. CM requested that both PT/OT see Pt today, CM to fax updated notes when available. [facility] p:[phone] f:[phone]
[2020-12-13 16:00] VITALS: BP 96/54
[2020-12-13 20:32] VITALS: BP 99/62
[2020-12-14 00:35] VITALS: BP 110/73
[2020-12-14 04:44] VITALS: BP 107/66
[2020-12-14 05:47] LABS: HEMATOCRIT 32.9 % (42.0-52.0); HEMOGLOBIN 10.9 gm/dL (14.0-18.0); MCH 31.7 pg (26.0-34.0); MCHC 33.2 g/dL (28.0-37.0); MCV 95.4 fL (80.0-100.0); MPV 8.4 fl. (7.2-11.1); RBC 3.45 mil/uL (4.50-6.00); RDW-CV 13.5 % (10.5-14.5); WBC 4.4 thou/uL (4.0-11.0)
[2020-12-14 05:51] LABS: CREATININE 0.5 mg/dL (0.6-1.3); POTASSIUM 3.7 mmol/L (3.5-5.1)
--- NOTE | 2020-12-14 07:31 | NUR ---
PATIENT HAS SLEPT WELL THROUGHOUT THE NIGHT. VSS ON 4L 02 VIA NASAL CANNULA. MEDICATIONS GIVEN ORDERED AND CHARTED. PATIENT UP WITH ASSIST X 1 TO THE BSC. DRESSING TO RIGHT HIP IS C/D/I. NO C/O PAIN AND DENIES NEEDING PAIN MEDICATION. IV IN LEFT WRIST-SL. FALL PRECAUTIONS IN PLACE AND HOURLY ROUNDS MADE. WILL CONTINUE WITH PLAN OF CARE AND NURSING TO MONITOR.
[2020-12-14 10:59] VITALS: BP 110/72
[2020-12-14 17:07] VITALS: BP 123/75
[2020-12-14 19:56] VITALS: BP 115/70
[2020-12-15 04:12] VITALS: BP 107/63
--- NOTE | 2020-12-15 04:42 | NUR ---
PATIENT HAS REMAINED ALERT AND ORIENTED X 4 THROUGHOUT THE SHIFT AND RESTING QUIETLY AT HOURLY ROUNDS. MEDICATED X 1 FOR PAIN OF THIS WRITING TO GOOD EFFECT. DRESSING RIGHT HIP CLEAN AND DRY. NOTED EDEMA RIGHT THIGH AND KITTY-DRESSING REDNESS. ICE PACKS PROVIDED. VITAL SIGNS STABLE. TRANSFERED TO [facility] [place] [place] FOR LARGE BM AT WITH ONE ASSIST, GAIT BELT AND WALKER. ABDUCTION WEDGE IN PLACE WHILE IN BED. FALL PRECAUTIONS IN PLACE. CONTINUE TO MONITOR.
[2020-12-15 08:30] VITALS: BP 100/66
--- NOTE | 2020-12-15 12:47 | OP ---
[address] [address] OPERATIVE REPORT Name: REESE SCHULTE SR Room: [address] IN .R.#: [id number] Admission: 12/10/20 Attend Phys: Eda Pitts MD Discharge: Date of : 43 Report #: [id number] THIS REPORT FOR: cc: Areli Hernandez Maggie M. DO Orth, Charles DO ~ DOC #: [id number] Harshil Shankar DO DATE OF SURGERY: 12/11/2020 PREOPERATIVE DIAGNOSIS: Displaced right osteoporotic femoral neck fracture. POSTOPERATIVE DIAGNOSIS: Displaced right osteoporotic femoral neck fracture. PROCEDURE PERFORMED: Right cemented bipolar ailin-hip arthroplasty utilizing the Pat Echo system with the following implants: 1. Size 15 high offset collared smooth cemented stem. 2. A 49 x 28 mm bipolar acetabular cup. 3. A 28 mm standard modular head component. SURGEON: Mitch Gomez DO FLY FRAME TENDER: Harshil Shankar DO SECOND JIG BOX OPERATOR: Nicolas Porter DO ANESTHESIA: General with peripheral nerve block. ESTIMATED BLOOD LOSS: 100 mL. ANTIBIOTICS: 2 grams of Ancef given IV one hour prior to incision. DRAINS: None. SPECIMENS: None. COMPLICATIONS: None. CONDITION: Stable to PACU. DISPOSITION: PACU to Med/Surg. INDICATIONS FOR PROCEDURE: The patient is a pleasant 75-year-old male who has ongoing pain in the right hip following a fall approximately one week ago. He presented to [facility] Emergency Department and was determined to have a displaced right osteoporotic femoral neck fracture and therefore, was [facility] [address] [place] [address] OPERATIVE REPORT Name: REESE SCHULTE SR Room: [address] IN [facility].#: [id number] Admission: 12/10/20 Attend Phys: Eda Pitts MD Discharge: Date of : 43 Report #: [id number] recommended to undergo a right cemented ailin-hip arthroplasty. Therefore, the risks, benefits, treatment options, alternatives and indications were discussed with the patient. Risks include, but not limited to damage to surrounding neurovascular structures, continued pain, continued bleeding, need for repeat surgery, wound dehiscence, infection, DVT, PE, as well inherent complication of anesthesia. The patient understands the risks and wished to proceed with surgery. DESCRIPTION OF PROCEDURE: The patient was seen in the preoperative holding area where consent was obtained and signed. Right lower extremity was marked and initialed. He was then given the benefit of peripheral nerve block and then he was transferred back to the operative suite and placed supine on the operating table. He was placed in the left lateral decubitus position and stabilized with well-padded pegs on the pegboard, as well as a well-padded axillary roll and all bony prominences were well padded. Right lower extremity was then sterilely prepped utilizing ChloraPrep x 2 and then draped free in normal sterile fashion. Timeout was then held indicating appropriate patient, procedure to be performed, operative site, operative surgeon, preoperative antibiotics and all in attendance were in agreement. Next, surgery began with a curvilinear incision based over the anterior aspect of the right hip. His incision was made with a 20-blade scalpel through skin and subcutaneous tissues. Then, electrocautery was then used to dissect down through subcutaneous fat down to the level of the IT band. IT band was then incised on the anterior aspect of the greater trochanter. I then extended curvilinearly with the incision utilizing Bolanos scissors. Next, the overlying hemorrhagic greater trochanteric bursa was then subsequently removed and then, the gluteus medius was then reflected off of the greater trochanter approximately the inferior two-thirds portion with a full thickness tendon peel technique. It was split in line with the muscle fibers at the superior aspect with care not to be extend greater than 5 cm. Next, the hip was then abducted and externally rotated, allowing exposure of the capsule and then a T-capsulotomy was then subsequently performed and elevated off of the intertrochanteric region. At which point in time, the femoral neck fracture was able to be identified and the femoral neck cut was then subsequently freshened up with a reciprocating saw and then, the remainder of the femoral neck and head were then removed utilizing a corkscrew. The pulvinar was then removed from the cotyloid fossa. Then multiple trial reductions were then performed with the trial acetabular cups. The trial acetabular component stayed with 49 mm, allowing the best seating as well as adequate suction. Next, attention was then directed to the femoral canal where the remnant neck was then removed utilizing a box osteotome and then sequential reaming was then performed with hand spring repairer helper and reamed up to a size 17. It was broached up to a size 17, which was determined to be stable. Then, multiple trial reductions were then performed with the 49 mm outer shell in the standard neck allowing best stability and yazidism of leg lengths and range of motion. Therefore, the hip was then dislocated, the trial components were then removed. [address] [address] OPERATIVE REPORT Name: REESE SCHULTE MADELIN Room: [address]#: [id number] Admission: 12/10/20 Attend Phys: Eda Pitts MD Discharge: Date of : 43 Report #: [id number] The femoral canal was then thoroughly irrigated as well as the Endo brush was then used as well as curette to remove any soft tissue. Then, the suction device was then placed into the femoral canal to allow adequate suction of all the cortices. All the cement was mixed on the back table. Cement restrictor was then placed in appropriate position and depth. The femoral canal was then filled in a retrograde fashion with the cement. Then, the size 15 mm smooth cemented stem was then placed into the femoral canal with the appropriate impactor and then held in position in appropriate anteversion until the cement had dried. Trial reduction was then subsequently performed again with the 49 mm standard neck combination, which allowed excellent stability, range of motion and yazidism of leg lengths. The hip was then dislocated, trial components were then removed. Tourniquet was then thoroughly irrigated and dried, and then final head and neck combination were malleted onto the cleansed and dried trunnion, fully seated and then tested the two finger tug test. Final reduction was then subsequently performed and then hemostasis was obtained with direct pressure and electrocautery. The wound was then thoroughly irrigated again with normal saline and the capsule was then closed utilizing #1 Vicryl in [id number] interrupted fashion, and then followed by gluteus medius tendon repair utilizing #5 Ti-Cron in [id number] interrupted stitches utilizing bone tunnels. I then oversewed with a #1 Vicryl. IT band was then reapproximated utilizing #1 Vicryl in [id number]-[id number] interrupted fashion. Wound was then thoroughly irrigated again and then the skin was then closed utilizing 2-0 Vicryl in inverted interrupted subcuticular stitches, followed by running 3-0 Monocryl and skin glue. Sterile dressing of Flex Silver was then applied. The patient was then transferred back to PACU in stable condition. Sponge and needle counts were correct x 2. Dr. Gomez was present for all critical aspects of the case. DO JAKE Turner/JAE/JANIA <ELECTRONICALLY SIGNED> By: Mitch Gomez DO 12/15/20 1247 [id number] Gomez DO /nt
[2020-12-15 16:00] VITALS: BP 113/64
--- NOTE | 2020-12-15 18:28 | NUR ---
A&Ox4. VITALS STABLE. PAIN CONTROLLED WITH OXY. UP WITH 1. ON 4LO2. DRESSING C/D/I. FALL PRECAUTIONS IN PLACE. WILL CONTINUE TO MONITOR.
[2020-12-15 20:15] VITALS: BP 121/89
--- NOTE | 2020-12-16 04:29 | NUR ---
PATIENT HAS REMAINED ALERT AND ORIENTED X 4 WITH SLIGHT FORGETFULNESS. UP TO BSC AT FOR MOD BM. TRANSFER WITH MOD ASSIST ON ONE, GAIT BELT AND WALKER. ABDUCTION PILLOW IN PLACE FOR SLEEP. USING URINAL OVERNIGHT. NO NAUSEA. PAIN ADEQUATELY CONTROLLED WITH ORAL PAIN MEDICATION. DRESSING RIGHT HIP CLEAN AND DRY WITH ICE PACK PROVIDED. FALL PRECAUTIONS IN PLACE. CONTINUE TO MONITOR.
[2020-12-16 08:11] VITALS: BP 107/65
[2020-12-16 10:02] VITALS: BP 107/65
[2020-12-16] MEDS ORDERED: CLONAZEPAM 1 MG1 M1 PO (11:05)
[2020-12-16] MEDS ORDERED: ZOLPIDEM TARTRA10 MG PO (11:05)
[2020-12-16] MEDS ORDERED: ASPIRIN325 PO (11:05)
[2020-12-16] MEDS ORDERED: COLACE 100 MG100 MG PO (11:05)
[2020-12-16] MEDS ORDERED: MIRALAX17 GM PO (11:05)
[2020-12-16] MEDS ORDERED: OXYCODONE HCL 55 MG PO (11:05)
--- NOTE | 2020-12-16 16:51 | NUR ---
PT A&OX4, FORGETFUL AT TIMES. PT UP ASSIST X1 W/GAIT BELT AND WALKER. PT UP TO RECLINER THIS SHIFT. FALL PRECAUTIONS IN PLACE. WBAT RLE. DRESSINGS C/D/I. CLARENCE HOSE IN PLACE BLE. NO IV ACCESS AT TIME OF ASSUMING CARE THIS AM. PT REMAINS CONTINENT OF B/B. RAPID COVID NEGATIVE. PT TO REHAB UNIT IN WHEELCHAIR. PRN PAIN MEDS ADMINISTERED THIS AM FOR THERAPY.
== END 2020-12-16 16:45 | DRG 521 ==
LOC: M.ERS 16:46 → M.TBA-ER 20:40 → M.ORTHSURG 20:40
PROVIDERS: Family Medicine; Nurse Practitioner Family; Orthopaedic Surgery; ADMIT Internal Medicine; ATTEND Internal Medicine
PROC: 0SRR0J9 Replacement of Right Hip Joint, Femoral Surface with Synthetic Substitute, Cemented, Open Approach (ICD-10-PCS; principal; 2020-12-11)
PROC: 3E0T3BZ Introduction of Anesthetic Agent into Peripheral Nerves and Plexi, Percutaneous Approach (ICD-10-PCS; 2020-12-11)
DX: M80.051A Age-related osteoporosis with current pathological fracture, right femur, initial encounter for fracture (principal); J96.01 Acute respiratory failure with hypoxia; D68.69 Other thrombophilia; K56.7 Ileus, unspecified; E03.9 Hypothyroidism, unspecified; I10 Essential (primary) hypertension; I48.91 Unspecified atrial fibrillation; Z20.822 Contact with and (suspected) exposure to COVID-19; Z96.653 Presence of artificial knee joint, bilateral; Z90.49 Acquired absence of other specified parts of digestive tract; Z98.84 Bariatric surgery status; Z98.42 Cataract extraction status, left eye; Z98.41 Cataract extraction status, right eye; Z79.899 Other long term (current) drug therapy

== ENCOUNTER 2020-12-16 13:27 | Inpatient (IN) | payer MEDICARE ==
[~2020-12-16] VITALS: Ht 196.2 cm; Wt 92.4 kg
[~2020-12-16 13:27] MED LIST changes: +ASPIRIN325 PO; +LEXAPRO20 MG PO; +MIRALAX17 GM PO
[2020-12-16 18:07] VITALS: BP 114/50
[2020-12-16 20:00] VITALS: BP 98/57
[2020-12-17 04:42] LABS: CALCIUM 8.2 mg/dL (8.5-10.1); CREATININE 0.4 mg/dL (0.6-1.3); POTASSIUM 3.2 mmol/L (3.5-5.1)
[2020-12-17 04:45] LABS: HEMATOCRIT 30.8 % (42.0-52.0); HEMOGLOBIN 10.5 gm/dL (14.0-18.0); MCH 32.3 pg (26.0-34.0); MCHC 34.2 g/dL (28.0-37.0); MCV 94.3 fL (80.0-100.0); MPV 7.9 fl. (7.2-11.1); RBC 3.26 mil/uL (4.50-6.00); RDW-CV 13.5 % (10.5-14.5); WBC 4.1 thou/uL (4.0-11.0)
[2020-12-17 08:01] VITALS: BP 122/74
[2020-12-17 20:02] VITALS: BP 136/79
[2020-12-18 05:17] LABS: HEMATOCRIT 29.8 % (42.0-52.0); HEMOGLOBIN 9.9 gm/dL (14.0-18.0); MCH 31.9 pg (26.0-34.0); MCHC 33.4 g/dL (28.0-37.0); MCV 95.5 fL (80.0-100.0); MPV 7.7 fl. (7.2-11.1); RBC 3.12 mil/uL (4.50-6.00); RDW-CV 13.5 % (10.5-14.5); WBC 3.6 thou/uL (4.0-11.0)
[2020-12-18 05:25] LABS: CALCIUM 8.3 mg/dL (8.5-10.1); CREATININE 0.4 mg/dL (0.6-1.3); POTASSIUM 3.9 mmol/L (3.5-5.1)
[2020-12-18 08:07] VITALS: BP 116/69
[2020-12-18 19:00] VITALS: BP 113/69
[2020-12-19 08:05] VITALS: BP 115/97
[2020-12-19 19:55] VITALS: BP 99/60
[2020-12-20 08:16] VITALS: BP 97/55
[2020-12-20 08:18] VITALS: BP 104/88
[2020-12-20 20:00] VITALS: BP 106/47
[2020-12-21 08:03] VITALS: BP 108/72
[2020-12-21 20:00] VITALS: BP 103/57
[2020-12-22 08:08] VITALS: BP 111/71
[2020-12-22 20:10] VITALS: BP 104/55
[2020-12-23 07:45] VITALS: BP 94/54
[2020-12-23 11:00] VITALS: BP 98/63
[2020-12-23 20:18] VITALS: BP 88/53
[2020-12-24 07:45] VITALS: BP 107/63
[2020-12-24 19:57] VITALS: BP 108/65
[2020-12-25 08:07] LABS: HEMATOCRIT 34.4 % (42.0-52.0); HEMOGLOBIN 11.3 gm/dL (14.0-18.0); MCH 30.7 pg (26.0-34.0); MCHC 32.8 g/dL (28.0-37.0); MCV 93.8 fL (80.0-100.0); MPV 7.2 fl. (7.2-11.1); RBC 3.66 mil/uL (4.50-6.00); RDW-CV 13.5 % (10.5-14.5); WBC 3.8 thou/uL (4.0-11.0)
[2020-12-25 08:16] VITALS: BP 108/64
[2020-12-25 08:25] LABS: ALBUMIN 2.8 g/dL (3.4-5.0); CALCIUM 7.9 mg/dL (8.5-10.1); CREATININE 0.5 mg/dL (0.6-1.3); MAGNESIUM 2.1 mg/dL (1.8-2.4); TOTAL BILIRUBIN 0.5 mg/dL (<0.1-1.0); TOTAL PROTEIN 6.3 g/dL (6.4-8.2)
[2020-12-25 08:27] LABS: POTASSIUM 2.9 mmol/L (3.5-5.1)
[2020-12-25 20:00] VITALS: BP 97/61
[2020-12-26 08:00] VITALS: BP 103/62
[2020-12-26 08:41] LABS: HEMATOCRIT 34.4 % (42.0-52.0); HEMOGLOBIN 11.3 gm/dL (14.0-18.0); MCH 31.2 pg (26.0-34.0); MCHC 32.8 g/dL (28.0-37.0); MCV 95.2 fL (80.0-100.0); MPV 7.2 fl. (7.2-11.1); RBC 3.62 mil/uL (4.50-6.00); RDW-CV 13.7 % (10.5-14.5); WBC 3.7 thou/uL (4.0-11.0)
[2020-12-26 09:01] LABS: ALBUMIN 2.9 g/dL (3.4-5.0); CALCIUM 8.3 mg/dL (8.5-10.1); CREATININE 0.5 mg/dL (0.6-1.3); MAGNESIUM 2.3 mg/dL (1.8-2.4); POTASSIUM 4.1 mmol/L (3.5-5.1); TOTAL BILIRUBIN 0.5 mg/dL (<0.1-1.0); TOTAL PROTEIN 6.6 g/dL (6.4-8.2)
[2020-12-26 21:40] VITALS: BP 98/58
[2020-12-27 07:54] VITALS: BP 110/64
[2020-12-27 19:45] VITALS: BP 99/60
[2020-12-28 07:18] VITALS: BP 101/62
[2020-12-28 19:00] VITALS: BP 108/63
[2020-12-29 07:52] VITALS: BP 114/65
[2020-12-29 20:23] VITALS: BP 109/61
[2020-12-30 07:45] VITALS: BP 104/64
[2020-12-30 19:00] VITALS: BP 124/63
[2020-12-31 07:30] VITALS: BP 103/63
[2020-12-31 08:22] VITALS: BP 103/63
[2020-12-31 19:00] VITALS: BP 116/48
[2021-01-01 07:35] LABS: HEMATOCRIT 35.1 % (42.0-52.0); HEMOGLOBIN 11.6 gm/dL (14.0-18.0); MCH 31.5 pg (26.0-34.0); MCHC 33.2 g/dL (28.0-37.0); MCV 94.8 fL (80.0-100.0); MPV 6.9 fl. (7.2-11.1); RBC 3.7 mil/uL (4.50-6.00); RDW-CV 13.7 % (10.5-14.5); WBC 3.9 thou/uL (4.0-11.0)
[2021-01-01 07:42] LABS: CREATININE 0.5 mg/dL (0.6-1.3); POTASSIUM 3.7 mmol/L (3.5-5.1)
[2021-01-01 08:06] VITALS: BP 100/55
[2021-01-01] MEDS ORDERED: LIDOPATCH1 EACH TOP (11:33)
[2021-01-01] MEDS ORDERED: MIDODRINE HCL 55 M1 PO (11:33)
[2021-01-01] MEDS ORDERED: RYTHMOL SR225 MG PO (11:33)
[2021-01-01] MEDS ORDERED: NEURONTIN 300M300 M2 PO (11:33)
[2021-01-01] MEDS ORDERED: FLOMAX0.4 MG PO (11:33)
[2021-01-01] MEDS ORDERED: TIROSINT75 MCG PO (11:33)
[2021-01-01] MEDS ORDERED: LEXAPRO20 MG PO (11:33)
[2021-01-01] MEDS ORDERED: OXYCODONE HCL 55 MG PO (11:33)
[2021-01-01] MEDS ORDERED: ZOLPIDEM TARTRA10 MG PO (11:33)
[2021-01-01] MEDS ORDERED: CLONAZEPAM 1 MG1 M1 PO (11:33)
[2021-01-01] MEDS ORDERED: TRAMADOL 50 MG50 MG PO (11:33)
[2021-01-01 19:00] VITALS: BP 113/71
[2021-01-02 08:00] VITALS: BP 108/60
[2021-01-02 19:50] VITALS: BP 112/61
[2021-01-03 08:23] VITALS: BP 107/63
[2021-01-03 21:45] VITALS: BP 99/64
[2021-01-04 08:00] VITALS: BP 115/59
[2021-01-04 19:55] VITALS: BP 110/65
[2021-01-05 07:44] VITALS: BP 125/73
[2021-01-05 20:21] VITALS: BP 133/71
[2021-01-06 07:55] VITALS: BP 127/71
[2021-01-06 08:14] LABS: HEMATOCRIT 32.3 % (42.0-52.0); HEMOGLOBIN 10.7 gm/dL (14.0-18.0); MCH 30.8 pg (26.0-34.0); MCHC 33.2 g/dL (28.0-37.0); MPV 7.4 fl. (7.2-11.1); RBC 3.47 mil/uL (4.50-6.00); RDW-CV 13.6 % (10.5-14.5)
[2021-01-06 08:20] LABS: ANION GAP < 0 mmol/L (7-16); BUN 5 mg/dL (7-18); CALCIUM 7.9 mg/dL (8.5-10.1); CHLORIDE 105 mmol/L (98-107); CO2 38 mmol/L (21-32); CREATININE 0.5 mg/dL (0.6-1.3); GLUCOSE 84 mg/dL (70-99); SODIUM 142 mmol/L (136-145)
[2021-01-06 08:51] LABS: POTASSIUM 2.9 mmol/L (3.5-5.1)
[2021-01-06 19:00] VITALS: BP 106/64
[2021-01-07 07:48] VITALS: BP 117/76
[2021-01-07 20:00] VITALS: BP 124/73
[2021-01-08 07:06] LABS: HEMATOCRIT 31.1 % (42.0-52.0); HEMOGLOBIN 10.4 gm/dL (14.0-18.0); MCHC 33.5 g/dL (28.0-37.0); MCV 92.6 fL (80.0-100.0); RBC 3.35 mil/uL (4.50-6.00); RDW-CV 13.7 % (10.5-14.5); WBC 2.6 thou/uL (4.0-11.0)
[2021-01-08 07:12] LABS: CALCIUM 7.6 mg/dL (8.5-10.1); CREATININE 0.4 mg/dL (0.6-1.3); POTASSIUM 3.7 mmol/L (3.5-5.1)
[2021-01-08 07:45] VITALS: BP 108/63
[2021-01-08 13:00] VITALS: BP 108/63
== END 2021-01-08 16:00 | disposition home health service (06) | DRG 535 ==
LOC: M.REH 13:27
PROVIDERS: Family Medicine; Internal Medicine; ADMIT Physical Medicine & Rehabilitation; ATTEND Physical Medicine & Rehabilitation
DX: S72.001A Fracture of unspecified part of neck of right femur, initial encounter for closed fracture (principal); J96.01 Acute respiratory failure with hypoxia; D68.69 Other thrombophilia; E03.9 Hypothyroidism, unspecified; I10 Essential (primary) hypertension; I48.91 Unspecified atrial fibrillation; W18.39XA Other fall on same level, initial encounter; M21.151 Varus deformity, not elsewhere classified, right hip; Z96.653 Presence of artificial knee joint, bilateral; K59.00 Constipation, unspecified; R53.81 Other malaise; G89.29 Other chronic pain; Z98.84 Bariatric surgery status; Y93.89 Activity, other specified; Y92.89 Other specified places as the place of occurrence of the external cause; Y99.8 Other external cause status; Z90.49 Acquired absence of other specified parts of digestive tract